=== PATIENT | male | born 1940 | race Caucasian/White ===

== ENCOUNTER 2018-07-13 08:17 | Emergency (ER) | payer MEDICARE, BC, SELFPAY ==
[2018-07-13 08:18] VITALS: PULSE 62; RESP 10; TEMP 36.3; O2SAT 98; BMI 28.0
[2018-07-13 08:24] VITALS: BP 141/83
--- NOTE | 2018-07-13 08:49 | RAD_ITS ---
STUDY: X-RAY CHEST REASON FOR EXAM: Male, 77 years old. Near syncopal episode. TECHNIQUE: Single AP portable view of the chest. COMPARISON: Comparison is made with prior study dated March 23, 2017. FINDINGS: EKG electrodes are seen. The lungs are clear and expanded. There is no demonstrated pleural abnormality. Sternal cerclage wires and vascular clips are present from a prior sternotomy and coronary artery bypass graft procedure (CABG). A left-sided ICD is seen. Borderline cardiomegaly. Normal mediastinum and kenzie. Normal visualized pulmonary arteries. There is atherosclerotic calcification of the aortic arch with tortuosity. There are diffuse degenerative changes of the visualized thoracic spine. Normal visualized ribs, clavicles, and shoulders. There is no demonstrated abnormality of the visualized soft tissue structures of the upper abdomen. RAD/Chest 1 View (Portable) IMPRESSION: No acute abnormality is present. Electronically Signed: Alok Condon, at 9:33 EST , Service support ,
--- NOTE | 2018-07-13 08:50 | EKG12_ITS ---
Test Reason : SYNCOPE Blood Pressure : / mmHG Vent. Rate : 057 BPM Atrial Rate : 057 BPM P-R Int : 210 ms QRS Dur : 096 ms QT Int : 438 ms P-R-T Axes : 044 031 064 degrees QTc Int : 426 ms Sinus bradycardia with 1st degree A-V block Possible Inferior infarct , age undetermined Abnormal ECG Confirmed by COLLEEN GARZA ([id number]), web editor COURTNEY LO ([id number]) on 07/17/2018 1:37:40 PM Referred By: JESSICA Confirmed By:COLLEEN GARZA
--- NOTE | 2018-07-13 08:53 | ED.VISSUMM ---
- ER Visit Summary Date of Service: 07/13/18 Chief Complaint: Near syncope History of Present Illness: The patient is a 77 M who presents to the emergency department after 2 episodes of near syncope. He called EMS who brought him to the hospital. Prehospital EKG shows a sinus rhythm. Patient states he lives by himself. He woke at 050 0 hours felt sleepy but otherwise was normal morning. He was getting dressed and he started feeling globally weak. He laid down on the couch for about 15 minutes. He slowly got up went to get a sweater on and his symptoms returned. He laid down again for about 20 minutes. He did not pass out. He states that he still was not feeling well so he called the ambulance. Denies any sweating, nausea, palpitations. States he has had a history of syncope in the past but hospitalization workups were negative. Notes 3 prior heart attacks. He sees Dr. Luna for cardiology. He has a pacemaker defibrillator in but states the battery is . 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 Physical Examination: Afebrile vital signs are stable Gen: Well-nourished well-developed Head: Normocephalic atraumatic Eyes: Perrl EOMI ENT: TMs clear no rhinorrhea moist mucous membranes Neck: Supple no lymphadenopathy no JVD nontender CVS: Regular rate rhythm no murmurs normal S1-S2 Respiratory: No distress clear to auscultation bilaterally chest nontender Abdomen: Soft nontender nondistended normal bowel sounds no masses Back: Nontender Extremity: Nontender no edema Skin: Normal color no rash Neuro: alert orientated ?3 CN II-XII intact normal strength sensation reflexes gait cerebellar Psych: Normal affect normal mood Test Results: CBC is normal. Chemistry showed a BUN of 42 with creatinine 1.60. Creatinine is around his baseline per him. Urinalysis normal. Troponin less than 0.015. Chest x-ray negative. Emergency Department Course and Treatment: Patient was placed on the monitor and observed. He has had no events on the monitor. Spoke with him about observation and he would prefer to go home. I think this is reasonable. He has had several admissions in the past for syncope/near syncope. Patient to return if worsening or concerns. Impression: 1. Near syncope This note was generated with NEHPation software. It may contain incorrect words, spelling, and punctuation that were not noted in review of the chart prior to signing ED Disposition - Plan for ED Patient: Disposition: Home or Assisted Living Instructions: ED Near Syncope Unkn Referrals: David Martínez MD [Primary Care Provider] - 1-2 Weeks
[2018-07-13 09:08] LABS: Hematocrit 38.8 % (40-54); Hemoglobin 13.1 g/dl (13.0-16.5); Mean Corp Hgb Conc 33.8 g/gl (32-36); Mean Corpuscular Hgb 31.4 pg (27.0-32.0); Mean Platelet Vol. 10.3 fl (6.2-12.0); Platelet Count 116 K/mm3 (150-450); RBC Distribution Width CV 13.8 % (11.6-14.6); RBC Distribution Width SD 46.9 fl (35.1-43.9); Red Blood Count 4.17 M/mm3 (4.6-6.2); White Blood Count 5.3 K/mm3 (4.4-11.0)
[2018-07-13 09:13] LABS: Scan Indicated on CBC? Y/N NO
[2018-07-13 09:22] LABS: Anion Gap 9 (5-15); BUN 42 mg/dL (7-18); BUN/Creat Ratio 26.2 RATIO (10-20); Calcium,Total 8.4 mg/dL (8.5-10.1); Chloride 111 mmol/L (98-107); EST Glomerular Filtration Rate 45 mL/min (>60); Est Glom Filt Rate - Afr Amer 54 mL/min (>60); Estimated Creatinine Clearance 39.87 ml/min; Glucose 98 mg/dL (74-106); Potassium 4.3 mmol/L (3.5-5.1); Sodium Level 143 mmol/L (136-145)
[2018-07-13 09:38] VITALS: BP 103/82; BP 110/70; BP 116/61; PULSE 52; PULSE 67; PULSE 69
[2018-07-13] MEDS: 0.9% Normal Saline 1,000 ML 999 ML IV (09:38)
[2018-07-13 10:14] LABS: Bacteria 0 SEEN /hpf (None Seen); Mucous, Urine 0 SEEN /hpf (<or=2+); Red Blood Cells-Urine 0 SEEN /hpf (0-5); White Blood Cells 0 SEEN /hpf (0-5)
[2018-07-13 10:16] LABS: Color, Urine Yellow (Yellow); Glucose, Dipstick Normal (Normal); Ketone-Dipstick Negative (Negative); Leukocyte Esterase-Dipstick Negative /ul (Negative); Nitrite-Dipstick Negative (Negative); Occult Blood-Urine Negative /ul (Negative); Protein-Dipstick Negative (Negative); Specific Gravity, Urine 1.015 (1.002-1.030); Urine Bilirubin Dipstick Negative (Negative); Urine Clarity Sl. Cloudy (Clear); Urine Urobilinogen Normal (Normal)
[2018-07-13 10:28] LABS: Squamous Epithelial Cells - UA 0-5 SEEN /hpf (0-5)
[2018-07-13 10:47] VITALS: BP 134/89; PULSE 66; RESP 14; O2SAT 99
== END 2018-07-13 11:39 | disposition home or self-care (01) ==
PROVIDERS: Emergency Provider Emergency Medicine; Family Provider Family Medicine; PCP Family Medicine
DX: R55 Syncope and collapse (principal); I25.10 Atherosclerotic heart disease of native coronary artery without angina pectoris; I12.9 Hypertensive chronic kidney disease with stage 1 through stage 4 chronic kidney disease, or unspecified chronic kidney disease; N18.3 Chronic kidney disease, stage 3 (moderate); N40.0 Benign prostatic hyperplasia without lower urinary tract symptoms; I25.2 Old myocardial infarction; Z87.891 Personal history of nicotine dependence; Z95.810 Presence of automatic (implantable) cardiac defibrillator
CPT/HCPCS: 71045; 80048; 81001; 84484; 85027; 93005; 96360; 99285; J7030; A4216

== ENCOUNTER 2018-10-15 10:12 | Emergency (ER) | payer MEDICARE, BC, SELFPAY ==
[2018-10-15 10:13] VITALS: BP 136/80; PULSE 54; PULSE 56; RESP 14; RESP 18; TEMP 35.7; O2SAT 100; BMI 27.9
--- NOTE | 2018-10-15 10:32 | EKG12_ITS ---
Test Reason : Blood Pressure : / mmHG Vent. Rate : 056 BPM Atrial Rate : 056 BPM P-R Int : 214 ms QRS Dur : 104 ms QT Int : 496 ms P-R-T Axes : 113 056 077 degrees QTc Int : 478 ms Sinus bradycardia with 1st degree A-V block Nonspecific ST and T wave abnormality Abnormal ECG Confirmed by LEANDER JACOME, MEÑO ([id number]), editor city SAMSON GIBSON ([id number]) on 10/20/2018 8:21:22 AM Referred By: HAMLET Confirmed By:MEÑO TABOR MD
--- NOTE | 2018-10-15 10:33 | ED.VIS.GEN ---
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 Outpatient work-up was initiated. Table tilt test and cardiac work-up negative. Results of EEG are unknown. He has not driven since July. He present complains of headache and had incontinence of urine. He denied biting his tongue or lip. He denies change in vision. Denies difficulty with speech or swallowing. He denies cardiac restaurant symptoms. He denies GI symptoms. He denies dysuria, frequency, urgency or hematuria. Denies black or maroon stool. He denies paresthesia, anesthesia or motor weakness. Vineyard Supervisor report not available at time of this dictation. Triage nurse, blood pressure was 80 initially. Prior similar symptoms: Yes Recent Illness/Hospitalization: Yes - Past Medical History (1) BPH (benign prostatic hyperplasia) Status: Chronic (2) CAD (coronary artery disease) Status: Chronic (3) Chronic kidney disease, stage III (moderate) Status: Chronic Comment: Status post right nephrectomy (4) Hypertension Status: Chronic (5) S/P ICD (internal cardiac defibrillator) procedure Status: Chronic Past Medical History - Allergies and Home Meds Allergies/Adverse Reactions: Allergies Penicillins Allergy (Verified 10/15/18 10:12) Unknown Primary Care Physician: David Martínez MD [Primary Care Provider] - Prior records reviewed: Yes Surgical History: - - CABG, multiple cardiac stent placement, lower mandible bilateral reduction, laminectomy L2-L4, right nephrectomy Lives: Alone Smoking Status: Former smoker Alcohol: None Drugs: None - Family History Maternal Family History: Reports: Cancer - Ovarian Paternal Family History: Reports: Diabetes Review of Systems General: Denies: Chills, Fever, Sweats Eyes: Denies: Visual changes - bilaterally, Blurred Vision - bilaterally, Diplopia ENT: Denies: Bilateral ear pain, Rhinorrhea, Sore throat Cardiovascular: Denies: Chest pain, Palpitations Respiratory: Denies: Dyspnea, Cough, Dyspnea on exertion Gastrointestinal: Denies: Abdominal pain, Nausea, Vomiting, Diarrhea, Melena, Hematochezia Genitourinary: Denies: Dysuria, Hematuria, Frequency Musculoskeletal: Denies: Myalgias, Arthralgias, Neck pain, Back pain, Swelling, Extremity Pain Skin: Denies: Rash, Wounds Neurological: Reports: Headache Hematologic: Denies: Easy bruising, Easy bleeding Physical Exam Vital Signs/Narrative: Vital Signs Temp Pulse Resp BP Pulse Ox 10/15/18 10:13 96.3 F L 56 L 18 136/80 H 100 Inital Vital Signs reviewed: Yes General: Well nourished, Well developed, No Acute Distress Head: Normocephalic, Atraumatic Eyes: Perrl, EOMI ENT: Moist mucous membranes, No rhinorrhea Neck: Supple, Nontender Cardiovascular: Regular rate, Regular rhythm, No murmurs Respiratory: No distress, CTA bilaterally, Chest nontender Abdomen: Soft, Nontender, Nondistended, Normal bowel sounds Back: Nontender, Normal Inspection Extremities: Nontender, No edema. Negative for: Tenderness, Edema, Calf Tenderness Skin: Normal color, No rash, No Trauma. Negative for: Cyanosis, Diaphoresis, Jaundice Neurological: Alert, Oriented x3, Cranial nerves II-XII grossly intact, Normal Strength, Normal Sensation, Normal DTR Psychological: Normal affect, Normal Mood Diagnostic/Tx/Re-eval Laboratory Results 10/15/18 10:55 Sodium 142 Potassium 3.9 Chloride 113 H Carbon Dioxide 23.0 Anion Gap 6 BUN 38 H Creatinine 1.50 H Estim Creat Clear Calc 42.53 Est GFR (MDRD) Af Amer 58 L Est GFR (MDRD) Non-Af 48 L BUN/Creatinine Ratio 25.3 H Glucose 88 Calcium 8.1 L - EKG Initial EKG Interpretation: Sinus Bradycardia - Ventricular rate is 56. There is first-degree AV block with ID interval of 214 ms. QRS duration is prolonged at 104 ms. QT interval is normal. This is unchanged from July 13, 2018. Prior: Unchanged - Medical Decision Making With reported low blood pressure, systolic in the 80s and syncopal episode suspect vasovagal. EKG was obtained since he is elderly and has history of cardiac issues. With patient complained of headache and incontinence to urine concern this may represent a seizure. Will obtain results of EEG performed end of September at [facility]. The EEG performed on October 07 at [facility] center revealed focal cerebral dysfunction in the left more than the right frontal temporal region. There was no epileptiform discharges or EEG seizures seen during this recording. EEG was interpreted by Dr.Jessica Melany MD. In light of bradycardia with hypotension normal EEG and normal cardiac work-up suspect vasovagal syncopal episode. Will discharge patient to home. ED Disposition - Plan for ED Patient: Disposition: Home or Assisted Living Diagnosis: Vasovagal syncope Instructions: ED Syncope Vasovagal Referrals: David Martínez MD [Primary Care Provider] - 3-5 Days
--- NOTE | 2018-10-15 10:38 | ED.DCSUM_ITS ---
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 Outpatient work-up was initiated. Table tilt test and cardiac work-up negative. Results of EEG are unknown. He has not driven since July. He present complains of headache and had incontinence of urine. He denied biting his tongue or lip. He denies change in vision. Denies difficulty with speech or swallowing. He denies cardiac restaurant symptoms. He denies GI symptoms. He denies dysuria, frequency, urgency or hematuria. Denies black or maroon stool. He denies paresthesia, anesthesia or motor weakness. Industrial Engineer report not available at time of this dictation. Triage nurse, blood pressure was 80 initially. Prior similar symptoms: Yes Recent Illness/Hospitalization: Yes - Past Medical History (1) BPH (benign prostatic hyperplasia) Status: Chronic (2) CAD (coronary artery disease) Status: Chronic (3) Chronic kidney disease, stage III (moderate) Status: Chronic Comment: Status post right nephrectomy (4) Hypertension Status: Chronic (5) S/P ICD (internal cardiac defibrillator) procedure Status: Chronic Past Medical History - Allergies and Home Meds Allergies/Adverse Reactions: Allergies Penicillins Allergy (Verified 10/15/18 10:12) Unknown Primary Care Physician: David Martínez MD [Primary Care Provider] - Prior records reviewed: Yes Surgical History: - - CABG, multiple cardiac stent placement, lower mandible bilateral reduction, laminectomy L2-L4, right nephrectomy Lives: Alone Smoking Status: Former smoker Alcohol: None Drugs: None - Family History Maternal Family History: Reports: Cancer - Ovarian Paternal Family History: Reports: Diabetes Review of Systems General: Denies: Chills, Fever, Sweats Eyes: Denies: Visual changes - bilaterally, Blurred Vision - bilaterally, Diplopia ENT: Denies: Bilateral ear pain, Rhinorrhea, Sore throat Cardiovascular: Denies: Chest pain, Palpitations Respiratory: Denies: Dyspnea, Cough, Dyspnea on exertion Gastrointestinal: Denies: Abdominal pain, Nausea, Vomiting, Diarrhea, Melena, He matochezia Genitourinary: Denies: Dysuria, Hematuria, Frequency Musculoskeletal: Denies: Myalgias, Arthralgias, Neck pain, Back pain, Swelling, Extremity Pain Skin: Denies: Rash, Wounds Neurological: Reports: Headache Hematologic: Denies: Easy bruising, Easy bleeding Physical Exam Vital Signs/Narrative: Vital Signs Temp Pulse Resp BP Pulse Ox 10/15/18 10:13 96.3 F L 56 L 18 136/80 H 100 Inital Vital Signs reviewed: Yes General: Well nourished, Well developed, No Acute Distress Head: Normocephalic, Atraumatic Eyes: Perrl, EOMI ENT: Moist mucous membranes, No rhinorrhea Neck: Supple, Nontender Cardiovascular: Regular rate, Regular rhythm, No murmurs Respiratory: No distress, CTA bilaterally, Chest nontender Abdomen: Soft, Nontender, Nondistended, Normal bowel sounds Back: Nontender, Normal Inspection Extremities: Nontender, No edema. Negative for: Tenderness, Edema, Calf Tenderness Skin: Normal color, No rash, No Trauma. Negative for: Cyanosis, Diaphoresis, Jaundice Neurological: Alert, Oriented x3, Cranial nerves II-XII grossly intact, Normal Strength, Normal Sensation, Normal DTR Psychological: Normal affect, Normal Mood Diagnostic/Tx/Re-eval Laboratory Results 10/15/18 10:55 Sodium 142 Potassium 3.9 Chloride 113 H Carbon Dioxide 23.0 Anion Gap 6 BUN 38 H Creatinine 1.50 H Estim Creat Clear Calc 42.53 Est GFR (MDRD) Af Amer 58 L Est GFR (MDRD) Non-Af 48 L BUN/Creatinine Ratio 25.3 H Glucose 88 Calcium 8.1 L - EKG Initial EKG Interpretation: Sinus Bradycardia - Ventricular rate is 56. There is first-degree AV block with NH interval of 214 ms. QRS duration is prolonged at 104 ms. QT interval is normal. This is unchanged from July 13, 2018. Prior: Unchanged - Medical Decision Making With reported low blood pressure, systolic in the 80s and syncopal episode suspect vasovagal. EKG was obtained since he is elderly and has history of cardiac issues. With patient complained of headache and incontinence to urine concern this may represent a seizure. Will obtain results of EEG performed end of September at [facility]. The EEG performed on October 07 at [facility] revealed focal cerebral dysfunction in the left more than the right frontal temporal region. There was no epileptiform discharges or EEG seizures seen during this recording. EEG was interpreted by Dr.Jessica Melany MD. In light of bradycardia with hypotension normal EEG and normal cardiac work-up suspect vasovagal syncopal episode. Will discharge patient to home. ED Disposition - Plan for ED Patient: Disposition: Home or Assisted Living Diagnosis: Vasovagal syncope Instructions: ED Syncope Vasovagal Referrals: David Martínez MD [Primary Care Provider] - 3-5 Days
--- NOTE | 2018-10-15 10:45 | NURSING ---
ATTEMPTING TO GET EEG FROM [facility]. FAXED PAPER TO [facility] MAIN RELEASE OF INFO [phone]
[2018-10-15 11:15] LABS: Anion Gap 6 (5-15); BUN 38 mg/dL (7-18); BUN/Creat Ratio 25.3 RATIO (10-20); Calcium,Total 8.1 mg/dL (8.5-10.1); Chloride 113 mmol/L (98-107); EST Glomerular Filtration Rate 48 mL/min (>60); Est Glom Filt Rate - Afr Amer 58 mL/min (>60); Estimated Creatinine Clearance 42.53 ml/min; Glucose 88 mg/dL (74-106); Potassium 3.9 mmol/L (3.5-5.1); Sodium Level 142 mmol/L (136-145)
--- NOTE | 2018-10-15 11:32 | NURSING ---
CALLED [facility] TO SEE IF RESPIR[facility]ORY WOULD FAX THE RESULTS OF THE EEG. THEY SAID THEY WOULD FAX THEM TO US
[2018-10-15] MEDS: Aspirin 325 MG Tablet PO (12:05)
[2018-10-15 12:38] VITALS: BP 119/85; PULSE 55; RESP 13; O2SAT 98
[2018-10-15 13:01] VITALS: BP 133/85; PULSE 56; RESP 17; O2SAT 95
== END 2018-10-15 13:30 | disposition home or self-care (01) ==
PROVIDERS: Emergency Provider Emergency Medicine; Family Provider Family Medicine; PCP Family Medicine
DX: R55 Syncope and collapse (principal); R00.1 Bradycardia, unspecified; I44.0 Atrioventricular block, first degree; I12.9 Hypertensive chronic kidney disease with stage 1 through stage 4 chronic kidney disease, or unspecified chronic kidney disease; N18.3 Chronic kidney disease, stage 3 (moderate); I25.10 Atherosclerotic heart disease of native coronary artery without angina pectoris; N40.0 Benign prostatic hyperplasia without lower urinary tract symptoms; Z87.891 Personal history of nicotine dependence; Z95.1 Presence of aortocoronary bypass graft; Z90.5 Acquired absence of kidney; Z95.5 Presence of coronary angioplasty implant and graft; Z88.0 Allergy status to penicillin; Z95.810 Presence of automatic (implantable) cardiac defibrillator
CPT/HCPCS: 80048; 93005; 99285; A4216

== ENCOUNTER 2018-11-09 20:58 | Inpatient (IN) | payer MEDICARE, BC, SELFPAY ==
[2018-11-09 20:59] VITALS: BP 146/88; PULSE 66; RESP 10; TEMP 36.4; O2SAT 100; BMI 26.9
--- NOTE | 2018-11-09 21:36 | ED.RN ---
sister called in at this time looking for patient updated. sister left phone number [phone]
[2018-11-09 22:00] VITALS: BP 129/70; BP 131/74; BP 134/79; PULSE 60; PULSE 64; PULSE 67
--- NOTE | 2018-11-09 22:01 | EKG12_ITS ---
Test Reason : Blood Pressure : / mmHG Vent. Rate : 065 BPM Atrial Rate : 065 BPM P-R Int : 172 ms QRS Dur : 102 ms QT Int : 494 ms P-R-T Axes : 040 056 073 degrees QTc Int : 513 ms Normal sinus rhythm Low voltage QRS ( Limb Leads) Prolonged QT Abnormal ECG Confirmed by LAMONT JACOME, BRENDA ([id number]), brands editor RAMILA PIKE ([id number]) on 11/11/2018 12:14:51 PM Referred By: JAYSHREE Confirmed By:BRENDA MIGUEL MD
[2018-11-09 22:36] VITALS: BP 141/85; PULSE 64; RESP 15; O2SAT 100
[2018-11-09 22:48] LABS: Absolute Lymphocyte Count 1.04 X10^3/ul (0.83-4.51); Absolute Neutrophil Count 2.3 X10^3/uL (2.0-7.7); Basophil# 0.02 X10^3/uL; Basophil% 0.5 % (0-1); Eosinophil# 0.16 X10^3/uL; Eosinophils% 3.9 % (0-5); Hematocrit 36.2 % (40-54); Hemoglobin 12.3 g/dl (13.0-16.5); Lymphocyte # 1.04 X10^3/ul (4.0); Lymphocyte % 25.4 % (19-41); Mean Corpuscular Hgb 30.7 pg (27.0-32.0); Mean Corpuscular Volume 90.3 fL (80-94); Mean Platelet Vol. 9.7 fl (6.2-12.0); Monocyte# 0.53 X10^3/uL; Monocyte% 12.9 % (0-10); Neutrophil # 2.33 X10^3/uL (2.7-7.7); Neutrophil % 56.8 % (47-70); Platelet Count 115 K/mm3 (150-450); RBC Distribution Width CV 12.9 % (11.6-14.6); RBC Distribution Width SD 42.3 fl (35.1-43.9); Red Blood Count 4.01 M/mm3 (4.6-6.2); White Blood Count 4.1 K/mm3 (4.4-11.0)
[2018-11-09 22:54] LABS: POSITIVE COUNT NO; POSITIVE DIFFERENTIAL NO; POSITIVE MORPHOLOGY NO
[2018-11-09 23:00] VITALS: BP 138/95; PULSE 65; RESP 18; O2SAT 99
[2018-11-09 23:09] LABS: ALB/GLOB Ratio 1.3 RATIO (0.9-2.4); AST(SGOT) 25 U/L (15-37); Alanine Aminotransfer ALT/SGPT 15 U/L (16-61); Albumin, Serum 3.9 g/dL (3.2-5.0); Alkaline Phosphatase 69 U/L (45-117); Anion Gap 9 (5-15); BUN 32 mg/dL (7-18); BUN/Creat Ratio 18.4 RATIO (10-20); Calcium,Total 8.9 mg/dL (8.5-10.1); Chloride 106 mmol/L (98-107); Creatinine, Serum 1.74 mg/dL (0.70-1.30); EST Glomerular Filtration Rate 40 mL/min (>60); Est Glom Filt Rate - Afr Amer 49 mL/min (>60); Estimated Creatinine Clearance 36.06 ml/min; Globulin 2.9 g/dL (2.2-4.2); Glucose 94 mg/dL (74-106); Potassium 4.6 mmol/L (3.5-5.1); Protein, Total 6.8 g/dL (6.4-8.2); Sodium Level 141 mmol/L (136-145)
--- NOTE | 2018-11-09 23:14 | ED.RN ---
notified of critical troponin values called in by lab
[2018-11-09] MEDS: Aspirin 81 MG TAB.CHEW 324 MG PO (23:25)
--- NOTE | 2018-11-09 23:25 | RAD_ITS ---
HISTORY: chest pain EXAM: XR Chest 1 View: COMPARISON: July 13, 2018 FINDINGS: # of images incl. paperwork: 1 Sternal wires remain. The cranial-most sternal wire has fractured. Left chest wall left subclavian access single lead cardiac pacer is unchanged in position. Calcific plaque within the aortic arch persists Lungs are clear. Heart is borderline enlarged. Thoracic spondylosis and degenerative disc disease Pulmonary vascularity is distinct. No effusions. RAD/Chest 1 View (Portable) IMPRESSION: No acute cardiopulmonary disease perceived. at 2336 Reported and signed by: London Alfaro MD Electronically Signed: London Alfaro MD at 23:35 EDT Tel , Service support ,
--- NOTE | 2018-11-09 23:27 | ED.DCSUM_ITS ---
- ER Visit Summary Date of Service: 11/09/18 Chief Complaint: Syncope History of Present Illness: The patient is a 78 M who presents with a syncopal episode that occurred tonight. Patient states he was tying a row boat to a dock when he passed out. Patient states he laid on the ground before he passed out. Patient states he felt lightheaded like he was going to pass out and then laid on the ground. Patient states he does not know how long he was unconscious for. Patient denies any chest pain or shortness of breath. Patient admits to a headache. Patient states he has a history of syncopal episodes and has had a work-up through neurology for his syncopal episodes but has not found a cause yet. Physical Examination: Vital signs are stable. Patient is afebrile. Patient is in no acute distress. Oral mucosa is pink and moist. Neck is supple. Trachea is midline. There is no JVD noted. Heart was regular rate and rhythm. Lungs are clear and equal bilateral. Abdomen is soft. Bowel sounds are normal. There is no tenderness. There is no guarding noted. Skin is warm dry. Cranial nerves II through XII are intact. There are no focal motor or sensory deficits noted. The remaining physical exam is within normal limits. Test Results: EKG showed normal sinus rhythm with a rate of 65. There is some T wave flattening in V5 and V6 which is new compared to the previous EKG dated 10/15/2018 but looks somewhat similar to the EKG from 07/13/2018. CBC shows platelet count of 115. Basic metabolic profile showed an elevated BUN of 32 and creatinine of 1.74. Troponin was elevated 0.905. Emergency Department Course and Treatment: Patient was given aspirin. Case was discussed with Dr. Johnson. He does not want patient started on heparin drip or any other medications at this time. He recommends admitting the patient to the hospitalist and he will see the patient in the morning. Case was discussed with the hospitalist. Patient will be admitted to the hospital. Disposition: Admit to hospital Impression: Non-STEMI This note was generated with [employer] dictation software. It may contain incorrect words, spelling, and punctuation that were not noted in review of the chart prior to signing Syncope ED Disposition - Plan for ED Patient: Disposition: Acute Care Hospital [facility] Diagnosis: Non-STEMI (non-ST elevated myocardial infarction) Referrals: David Martínez MD [Primary Care Provider] -
[2018-11-10] VITALS (14 sets, daily range): BP systolic 78–136; BP diastolic 43–78; PULSE 59–71; RESP 15–19; TEMP 36.4–36.9; O2SAT 96–100; BMI 25.7; BMI 26.9
--- NOTE | 2018-11-10 00:04 | HP.PCM_ITS ---
Problem List (1) Non-STEMI (non-ST elevated myocardial infarction) Status: Acute (2) Hypertension Status: Chronic (3) Chronic kidney disease, stage III (moderate) Status: Chronic Comment: Status post right nephrectomy History of Present Illness Date of Admission: 11/10/18 Chief Complaint: SYNCOPE The patient is a 78 year old M with a significant history of kidney cancer status post nephrectomy; CAD status post CABG in , coronary stent placed in graft in May 1994 and angioplasty in March 1995; ICD which reportedly is not working; and with recurrent syncope who presented with a syncopal episode while working on his boots. He had a presyncopal feeling so he squatted. The next thing he realized he was on the floor having passed out. He denied any nausea, vomiting or seizure activity associated with his passing out. A neighbor saw him lying on the floor and the neighbor helped him called 911. At the emergency department patient was noted to have elevated troponin for which reason cardiology was consulted. Past Medical History Past Medical History (Chronic Problems): Chronic Problems CAD (coronary artery disease) (Chronic) BPH (benign prostatic hyperplasia) (Chronic) Hypertension (Chronic) History of laminectomy (Chronic) L2-L4 S/P ICD (internal cardiac defibrillator) procedure (Chronic) Chronic kidney disease, stage III (moderate) (Chronic) Status post right nephrectomy Allergies Penicillins Allergy (Verified 11/09/18 22:34) Unknown Home Medications: Ambulatory Orders Medication Instructions Recorded Ascorbic Acid [Vitamin C] 1,000 mg PO DAILY 03/23/17 Aspirin 81 mg PO DAILY 03/23/17 Carvedilol [Coreg (Beta Xochitl)] 3.125 tab PO BID 03/23/17 Diclofenac [Voltaren] 75 mg PO BID PRN PRN 03/23/17 Cholecalciferol (Vitamin D3) 2,000 unit PO DAILY 07/13/18 [Vitamin D3] Ubidecarenone [Coq-10] 100 mg PO DAILY 11/10/18 Surgical History: - - CABG, multiple cardiac stent placement, lower mandible bilateral reduction, laminectomy L2-L4, right nephrectomy Lives: Alone Smoking Status: Former smoker - *Family History Maternal History Items: Cancer - Ovarian Paternal History Items: Diabetes Review of Systems Constitutional: Denies: Chills, Fever, Weight Change HEENT: Denies: Head Aches, Sinus Congestion, Sinus Drainage Cardiovascular: Reports: Syncope. Denies: Chest Pain, Palpitations Respiratory: Denies: Cough, Shortness of breath at rest, Sputum production Gastrointestinal: Denies: Abdominal Pain, Nausea, Vomiting Genitourinary: Denies: Dysuria Musculoskeletal: Denies: Joint Pain, Joint Tenderness Skin: Denies: Rash, Wounds Neurological: Denies: Numbness, Tingling, Focal weakness Psychiatric: Denies: Anxiety, Depression, Homicidal Ideations, Suicidal Ideations Hematologic/ Lymphatic: Denies: Easy Bruising, Easy Bleeding VTE Information - Inpt Only VTE Present on Admission: No VTE Mechan Device Prophylaxis: None VTE Pharm Prophylaxis ordered?: Yes Patient Problems: Active and Suspected Problems Non-STEMI (non-ST elevated myocardial infarction) (Acute) - Physical Exam General: Alert, Oriented x3, Cooperative HEENT: Atraumatic, PERRLA, EOMI, Normocephalic Neck: Supple, No JVD, Negative Carotid Bruits Lungs: Clear to auscultation, Normal air movement Cardiovascular: Regular rate, No murmurs Abdomen: Bowel Sounds Present, Soft, Non Tender Extremities: No edema, Capillary Refill Less than 3 Seconds Skin: No rashes, No breakdown Musculoskeletal: No Tenderness to Palpation of Joints or Extremities Neurological: Cranial nerves II-XII grossly intact Psych/Mental Status: Normal Affect, Appropriate Vital Signs Temp Pulse Resp BP Pulse Ox 97.6 F L 65 18 138/95 H 99 11/09/18 20:59 11/09/18 23:00 11/09/18 23:00 11/09/18 23:00 11/09/18 23:00 Oxygen Delivery Method Room Air Weight: 87.5 kg Body Mass Index (BMI) 26.9 Laboratory Tests Past 24 Hrs 11/09/18 11/09/18 22:30 22:30 WBC 4.1 L RBC 4.01 L Hgb 12.3 L Hct 36.2 L MCV 90.3 MCH 30.7 MCHC 34.0 RDW 12.9 RDW Differential 42.3 Plt Count 115 L MPV 9.7 Immature Gran % (Auto) 0.500 Neut % (Auto) 56.8 Lymph % (Auto) 25.4 [place] % (Auto) 12.9 H Eos % (Auto) 3.9 Baso % (Auto) 0.5 Absolute Neuts (auto) 2.3 Absolute Lymphs (auto) 1.04 Total Counted Not Reportable Sodium 141 Potassium 4.6 Chloride 106 Carbon Dioxide 26.0 Anion Gap 9 BUN 32 H Creatinine 1.74 H Estim Creat Clear Calc 36.06 Est GFR (MDRD) Af Amer 49 L Est GFR (MDRD) Non-Af 40 L BUN/Creatinine Ratio 18.4 Glucose 94 Calcium 8.9 Total Bilirubin 0.60 AST 25 ALT 15 L Alkaline Phosphatase 69 Troponin I 0.905 H* Total Protein 6.8 Albumin 3.9 Globulin 2.9 Albumin/Globulin Ratio 1.3 Assessment/Plan All Active Problems Non-STEMI (non-ST elevated myocardial infarction) (Acute) Near syncope (Acute) The patient is a 78 year old M with a significant history of CAD status post CABG in , coronary stent placed in graft in May 1994 and angioplasty in March 1995; ICD which reportedly is not working; and with recurrent syncope who presented with a syncopal episode while working on his boat and found to have elevated troponin consistent with NSTEMI. Non-ST elevated VA Admit to a monitored bed on PCU CXR independently reviewed confirms no acute cardiopulmonary process. Noted to have ICD in place. EKG independently reviewed confirms T wave flattening in V6; decrease in height of T wave in V5 compared to that of 10/15/2018. However, EKG on presentation was no different from EKG on 13 July 2018. Received aspirin 324 mg in the emergency department. Continue ASA 81 mg p.o. daily We will check lipid panel. High intensity statin x1 dose ordered. Serial cardiac enzymes Emergency department doctor discussed the case with cardiology and cardiology will follow. Per discussion between emergency department doctor and cardiology no anticoagulation at this time. Cardiology consult placed. Patient reports intolerance to statin. Statin not ordered Hold Diclofenac that he takes prn. Syncope Patient reported he had a first syncopal episode with collapse on 12 July [address]. He has had about 2-3 more episodes so at this time he does not drive. His orthostatics were unremarkable in the ED. Potassium was unremarkable. Check magnesium level. CKD On Admission his creatinine was 1.74 which although elevated which is within his baseline. Will give gentle IV hydration. Trend BMP. Of note patient reports a history of renal cancer status post nephrectomy. CAD status post CABG, stent and angioplasty Aspirin and Coreg continued Patient reports intolerance to statin. Obtain records from [facility]. ICD Placement Patient reported that he had ICD placed because of ventricular fibrillation about 10 years ago. He reported that the battery of of his ICD is . He thinks that his ICD is not functioning. Order to obtain records from [facility] where he has had multiple heart procedures. May be more information from his ICD can be obtained from the records. DVT prophylaxis Subcutaneous Heparin Code Visit OBSV E&M: 86888 Initial observation care L3
[2018-11-10] MEDS: 0.9% Normal Saline 1,000 ML 75 ML IV ×2 (01:37→18:00)
[2018-11-10 04:19] LABS: Bacteria 0 SEEN /hpf (None Seen); Mucous, Urine 0 SEEN /hpf (<or=2+); Red Blood Cells-Urine 0 SEEN /hpf (0-5); Squamous Epithelial Cells - UA 0 SEEN /hpf (0-5); White Blood Cells 0 SEEN /hpf (0-5)
[2018-11-10 04:25] LABS: Color, Urine Yellow (Yellow); Glucose, Dipstick Normal (Normal); Ketone-Dipstick 5 mg/dl (Negative); Leukocyte Esterase-Dipstick Negative /ul (Negative); Nitrite-Dipstick Negative (Negative); Occult Blood-Urine Negative /ul (Negative); Protein-Dipstick 15 mg/dl (Negative); Urine Bilirubin Dipstick Negative (Negative); Urine Clarity Clear (Clear); Urine Urobilinogen Normal (Normal); Urine pH 6.5 (5.0 - 8.0)
[2018-11-10 05:29] LABS: International Normalized Ratio 1.2; Prothrombin Time (Protime)PT. 14.5 SECONDS (11.7-14.9)
[2018-11-10 05:51] LABS: Cholesterol 209 mg/dL (200); High Density Lipoprotein 29 mg/dL; Magnesium 2.4 mg/dL (1.6-2.6); Triglycerides 285 mg/dL; Very Low Density Lipoprotein 57 mg/dL (5-40)
[2018-11-10] MEDS: Aspirin 81 MG TAB.CHEW PO (08:56)
[2018-11-10] MEDS: Carvedilol 3.125 MG TABLET PO ×2 (08:56→21:08)
[2018-11-10] MEDS: Heparin Injection (Vial) 5,000 UNIT/ML VIAL 5000 UNIT SC ×2 (08:56→21:08)
[2018-11-10] MEDS: Ensure Clear 120 ML Liquid PO (08:58)
--- NOTE | 2018-11-10 10:23 | NURSING ---
Leaving for EGD
--- NOTE | 2018-11-10 11:37 | CASEMGMT ---
RN CM Assessment Presentation: NSTEMI Intro role of CM and purpose of RN CM assessment to patient. Pt is awake, alert and able to participate in assessment. Demographics, PCP and Pharmacy verified. Pt states he is generally independent, does not use DME and cares for self at home. Pt voiced he has begun considering moving to Assisted Living or one story home. States he has contacted [facility] Small but could benefit from more information. RN CM discussed SW speaking with pt re: planning if pt cannot remain in his home.Pt is agreeable. PCP: Dr. Martínez Specialists: Dr. Johnson Preferred Pharmacy: [facility] Pharmacy, [place] Insurance: [facility] Prescription Benefit: yes LNOK: Sister, Amara Hutchinson. Pt confirms this is his contact. Living Arrangements: Lives in two story home, 4 steps into home and 16 steps into home. Pt states he is independent at home. States he has increasing difficulty with stairs and worries he may have syncopal episode at home and hurt himself. Transportation: Pt pays for transportation services. States he can drive, however with syncopal episodes, he prefers not to. DME: cane only per pt. HHC: Had in past, not sure which agency. Discussed Home Health on dc and pt is declining at this time. States as long as he is not dizzy, he manages at home. SW: referral to speak with pt re: planning if cannot remain in home. PHANI Galloway updated. Patient DC goals: Home DC PLAN: Home Tiana GUSTAFSON RN ACM
--- NOTE | 2018-11-10 13:39 | PCM.PROGNOTE ---
<Angel Garcia - Last Filed: 11/10/18 13:39> Patient Problems: Active and Suspected Problems Non-STEMI (non-ST elevated myocardial infarction) (Acute) Subjective: Pt has no c/o CP, SOB, LH/Dizzines, palpitations. He has an AICD however it is due for a battery change and he is undecided about if he wants it changed, and he also does not know how much life is left. He states his EP doc informed him that he is unsure if it has enough charge to deliver a shock if needed. He reports becoming dizzy, blacking out, losing control of his bladder, and waking up with mild fogginess that gradually goes away. The patient has had several EEGs done, no seizure has ever been found. Prior to this syncopal event the last was about 1 month ago. - Physical Exam General: Alert, Oriented x3, Cooperative HEENT: Atraumatic, PERRLA, EOMI, Normocephalic Neck: Supple, No JVD, Negative Carotid Bruits Lungs: Clear to auscultation, Normal air movement Cardiovascular: Regular rate, No murmurs Abdomen: Bowel Sounds Present, Soft, Non Tender Extremities: No edema, Capillary Refill Less than 3 Seconds Skin: No rashes, No breakdown Musculoskeletal: No Tenderness to Palpation of Joints or Extremities Neurological: Cranial nerves II-XII grossly intact Psych/Mental Status: Normal Affect, Appropriate, Alert and oriented to time, place, person, mood and affect Vital Signs Temp Pulse Resp BP Pulse Ox 97.9 F 60 15 95/56 L 100 11/10/18 08:55 11/10/18 08:55 11/10/18 08:55 11/10/18 08:55 11/10/18 08:55 Oxygen Delivery Method Room Air Weight: 184 lb 4.903 oz Body Mass Index (BMI) 25.7 Intake and Output for Last 24 Hours 11/08/18 11/09/18 11/10/18 23:59 23:59 23:59 Intake Total 1146 / 1146 Balance 1146 / 1146 Laboratory Tests Past 24 Hrs 11/09/18 11/09/18 11/10/18 22:30 22:30 01:57 WBC 4.1 L RBC 4.01 L Hgb 12.3 L Hct 36.2 L MCV 90.3 MCH 30.7 MCHC 34.0 RDW 12.9 RDW Differential 42.3 Plt Count 115 L MPV 9.7 Immature Gran % (Auto) 0.500 Neut % (Auto) 56.8 Lymph % (Auto) 25.4 [place] % (Auto) 12.9 H Eos % (Auto) 3.9 Baso % (Auto) 0.5 Absolute Neuts (auto) 2.3 Absolute Lymphs (auto) 1.04 Total Counted Not Reportable PT INR Sodium 141 Potassium 4.6 Chloride 106 Carbon Dioxide 26.0 Anion Gap 9 BUN 32 H Creatinine 1.74 H Estim Creat Clear Calc 36.06 Est GFR (MDRD) Af Amer 49 L Est GFR (MDRD) Non-Af 40 L BUN/Creatinine Ratio 18.4 Glucose 94 Calcium 8.9 Magnesium Total Bilirubin 0.60 AST 25 ALT 15 L Alkaline Phosphatase 69 Troponin I 0.905 H* 1.100 H* Total Protein 6.8 Albumin 3.9 Globulin 2.9 Albumin/Globulin Ratio 1.3 Triglycerides Cholesterol LDL Cholesterol VLDL Cholesterol HDL Cholesterol Urine Color Urine Clarity Urine pH Ur Specific [place] Urine Protein Urine Glucose (UA) Urine Ketones Urine Occult Blood Urine Nitrite Urine Bilirubin Urine Urobilinogen Ur Leukocyte Esterase Urine RBC Urine WBC Ur Squamous Epith Cells Urine Bacteria Urine Mucus 11/10/18 11/10/18 11/10/18 04:10 04:48 04:48 WBC RBC Hgb Hct MCV MCH MCHC RDW RDW Differential Plt Count MPV Immature Gran % (Auto) Neut % (Auto) Lymph % (Auto) [place] % (Auto) Eos % (Auto) Baso % (Auto) Absolute Neuts (auto) Absolute Lymphs (auto) Total Counted PT 14.5 INR 1.2 Sodium Potassium Chloride Carbon Dioxide Anion Gap BUN Creatinine Estim Creat Clear Calc Est GFR (MDRD) Af Amer Est GFR (MDRD) Non-Af BUN/Creatinine Ratio Glucose Calcium Magnesium 2.4 Total Bilirubin AST ALT Alkaline Phosphatase Troponin I 0.751 H* Total Protein Albumin Globulin Albumin/Globulin Ratio Triglycerides 285 H Cholesterol 209 H LDL Cholesterol 123 VLDL Cholesterol 57 H HDL Cholesterol 29 L Urine Color Yellow Urine Clarity Clear Urine pH 6.5 Ur Specific [place] 1.010 Urine Protein 15 H Urine Glucose (UA) Normal Urine Ketones 5 H Urine Occult Blood Negative Urine Nitrite Negative Urine Bilirubin Negative Urine Urobilinogen Normal Ur Leukocyte Esterase Negative Urine RBC 0 SEEN Urine WBC 0 SEEN Ur Squamous Epith Cells 0 SEEN Urine Bacteria 0 SEEN Urine Mucus 0 SEEN Medical Necessity - Tobacco Use Smoking Status: Former smoker Assessment/Plan All Active Problems Non-STEMI (non-ST elevated myocardial infarction) (Acute) Near syncope (Acute) 1. NSTEMI, syncope - cardiology consulted. Multiple syncopal episodes. No dysrhythmias found on prior workups. AICD in place - dying battery. Prior seizure workups negative. No CP, palp, SOB. Trop peak at 1.100. Has had indeterminate tilt table test in past. Obtain echo. 2/6 murmur noted best over the 4th IC space LSB. EKG with nonspecific changes. Negative orthos in ER. Cannot have MRI 2/2 AICD. 2. Hx CAD prior sent. On Coreg, aspirin. No statin 2/2 intolerance. 3. CKD III - stable. 4. HLD - intolerant to statins. abnormal lipid profile. DVT ppx: heparin This patient was seen by Angel Garcia PA-C under the supervision of Dr. Jackman. <Evelio Jackman - Last Filed: 11/10/18 14:06> - Physical Exam Vital Signs Temp Pulse Resp BP Pulse Ox 97.9 F 60 15 83/52 L 100 11/10/18 08:55 11/10/18 08:55 11/10/18 08:55 11/10/18 13:40 11/10/18 08:55 Oxygen Delivery Method Room Air Weight: 83.6 kg Body Mass Index (BMI) 25.7 Intake and Output for Last 24 Hours 11/08/18 11/09/18 11/10/18 23:59 23:59 23:59 Intake Total 1146 / 1146 Balance 1146 / 1146 Laboratory Tests Past 24 Hrs 11/09/18 11/09/18 11/10/18 22:30 22:30 01:57 WBC 4.1 L RBC 4.01 L Hgb 12.3 L Hct 36.2 L MCV 90.3 MCH 30.7 MCHC 34.0 RDW 12.9 RDW Differential 42.3 Plt Count 115 L MPV 9.7 Immature Gran % (Auto) 0.500 Neut % (Auto) 56.8 Lymph % (Auto) 25.4 [place] % (Auto) 12.9 H Eos % (Auto) 3.9 Baso % (Auto) 0.5 Absolute Neuts (auto) 2.3 Absolute Lymphs (auto) 1.04 Total Counted Not Reportable PT INR Sodium 141 Potassium 4.6 Chloride 106 Carbon Dioxide 26.0 Anion Gap 9 BUN 32 H Creatinine 1.74 H Estim Creat Clear Calc 36.06 Est GFR (MDRD) Af Amer 49 L Est GFR (MDRD) Non-Af 40 L BUN/Creatinine Ratio 18.4 Glucose 94 Calcium 8.9 Magnesium Total Bilirubin 0.60 AST 25 ALT 15 L Alkaline Phosphatase 69 Troponin I 0.905 H* 1.100 H* Total Protein 6.8 Albumin 3.9 Globulin 2.9 Albumin/Globulin Ratio 1.3 Triglycerides Cholesterol LDL Cholesterol VLDL Cholesterol HDL Cholesterol Urine Color Urine Clarity Urine pH Ur Specific [place] Urine Protein Urine Glucose (UA) Urine Ketones Urine Occult Blood Urine Nitrite Urine Bilirubin Urine Urobilinogen Ur Leukocyte Esterase Urine RBC Urine WBC Ur Squamous Epith Cells Urine Bacteria Urine Mucus 11/10/18 11/10/18 11/10/18 04:10 04:48 04:48 WBC RBC Hgb Hct MCV MCH MCHC RDW RDW Differential Plt Count MPV Immature Gran % (Auto) Neut % (Auto) Lymph % (Auto) [place] % (Auto) Eos % (Auto) Baso % (Auto) Absolute Neuts (auto) Absolute Lymphs (auto) Total Counted PT 14.5 INR 1.2 Sodium Potassium Chloride Carbon Dioxide Anion Gap BUN Creatinine Estim Creat Clear Calc Est GFR (MDRD) Af Amer Est GFR (MDRD) Non-Af BUN/Creatinine Ratio Glucose Calcium Magnesium 2.4 Total Bilirubin AST ALT Alkaline Phosphatase Troponin I 0.751 H* Total Protein Albumin Globulin Albumin/Globulin Ratio Triglycerides 285 H Cholesterol 209 H LDL Cholesterol 123 VLDL Cholesterol 57 H HDL Cholesterol 29 L Urine Color Yellow Urine Clarity Clear Urine pH 6.5 Ur Specific [place] 1.010 Urine Protein 15 H Urine Glucose (UA) Normal Urine Ketones 5 H Urine Occult Blood Negative Urine Nitrite Negative Urine Bilirubin Negative Urine Urobilinogen Normal Ur Leukocyte Esterase Negative Urine RBC 0 SEEN Urine WBC 0 SEEN Ur Squamous Epith Cells 0 SEEN Urine Bacteria 0 SEEN Urine Mucus 0 SEEN Assessment/Plan This patient was seen in conjunction with Angel Garcia PA-C . I have independently interviewed and examined the patient and reviewed pertinent historical, laboratory, and other data. Please refer to Angel Garcia PA-C note for details of this patient's presentation, findings, and recommendations. I have reviewed Angel Garcia PA-C note and concur with documented findings. In brief, patient is a 78-year-old gentleman with past medical history significant CAD with previous CABG and subsequent angioplasty and ischemic cardiomyopathy who presented with syncopal episode found to have elevated troponin consistent with non-STEMI Physical Examination: GENERAL: cooperative HEENT: Atraumatic; EYES; Anicteric, Normal Conjunctiva NECK; supple, normal thyroid, RESPIRATORY: Diminished to auscultation CARDIOVASCULAR: Regular S1 S2, GI: soft, non-tender, normoactive bowel sounds, NEURO: Awake; no lateralizing signs. SKIN: No Rash PSYCH; Normal affect Assessment: 1. Syncopal episode 2. Acute non-STEMI 3. CAD with previous CABG and subsequent stent placement 4. 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 CKD stage III 6. Dyslipidemia Recommendations: 1. I have discussed the results of my overview and impressions with the patient 2. Options for management were reviewed Code Visit Inpatient E&M: 77612 Subs Hosp L3
--- NOTE | 2018-11-10 14:04 | ECHOD_ITS ---
Reason For Study: NSTEMI Procedure This was a 2D Doppler, Color Flow transthoracic echocardiogram. The exam was of adequate technical quality. Exam performed portable in patient room. Left Ventricle Mildly dilated left ventricle. Mild segmental systolic dysfunction (see wall motion). The estimated ejection fraction is 50 %. Posterior-Basal: Akinetic. Infero-Basal: Akinetic. Basal inferoseptal: Hypokinetic. Mid-Posterior: Hypokinetic. Mid-Inferior: Hypokinetic. Right Ventricle Normal RV size. ICD or pacer leads identified within the right ventricle. Normal systolic function. Atria The left atrium is mildly enlarged. Normal right atrium. ICD or pacer leads identified within the right atrium. No doppler evidence for ASD. Mitral Valve There is no mitral annular calcification. Mild diffuse mitral valve thickening. The mitral valve chordae are thickened and/or calcified. Mild (1+) mitral valve insufficiency. Tricuspid Valve Normal tricuspid valve. Moderate (2+) tricuspid valve insufficiency. Right ventricular systolic pressure estimated to be 20 mmHg. Aortic Valve Trisinus/trileaflet aortic valve. Mild diffuse aortic valve thickening. Moderate focal aortic valve calcification. Mild aortic stenosis. Trivial aortic valve insufficiency. Pulmonic Valve The pulmonic valve is not well visualized. Mild (1+) pulmonic valve insufficiency. Great Vessels Normal sized aortic root. Calcified aortic root. Pericardium/Pleural No pericardial effusion. MMode/2D Measurements & Calculations LVIDd: 5.4 cm IVSd: 1.3 cm LVOT diam: 2.1 cm LVIDs: 4.6 cm LVPWd: 1.1 cm LVOT area: 3.5 cm2 FS: 15.0 % Ao root diam: 3.6 cm LAV(MOD-bp): 86.1 ml LVAd ap4: 39.0 cm2 LA dimension: 5.2 cm LAV(MOD-bp) Indexed: 42.3 ml/m2 EDV(MOD-sp4): 143.2 ml LAV(MOD-sp2): 81.4 ml EDV(sp4-el): 141.9 ml LAV(MOD-sp4): 89.9 ml LVAs ap4: 27.8 cm2 ESV(MOD-sp4): 88.3 ml ESV(sp4-el): 85.5 ml EF(MOD-sp4): 38.3 % EF(sp4-el): 39.7 % SV(MOD-sp4): 54.8 ml SV(sp4-el): 56.4 ml LA A4 area: 25.1 cm2 RA A4 area: 20.1 cm2 Time Measurements MV dec time: 0.28 sec Doppler Measurements & Calculations MV E max gio: 65.1 cm/sec Lat Peak E' Gio: 6.7 cm/sec Med Peak E' Gio: 5.2 cm/sec MV A max gio: 62.4 cm/sec E/E' lat: 9.7 E/E' med: 12.5 MV E/A: 1.0 MV V2 max: 70.5 cm/sec MV P1/2t max gio: 62.8 cm/sec Ao V2 max: 148.2 cm/sec MV max P.0 mmHg MV P1/2t: 183.1 msec Ao max P.8 mmHg MV V2 mean: 44.2 cm/sec MV mean P.88 mmHg MV dec slope: 100.4 cm/sec2 GARY(V,D): 1.8 cm2 MV V2 VTI: 33.1 cm MVA(P1/2t): 1.2 cm2 AI max gio: 340.9 cm/sec LV V1 max: 77.7 cm/sec MR max gio: 417.6 cm/sec AI max P.5 mmHg LV V1 max P.4 mmHg MR max P.7 mmHg MR mean gio: 309.6 cm/sec AI dec slope: 122.3 cm/sec2 MR mean P.8 mmHg AI P1/2t: 816.6 msec MR VTI: 154.8 cm PA V2 max: 77.0 cm/sec PI end-d gio: 98.2 cm/sec TR max gio: 207.1 cm/sec TR max P.2 mmHg Interpretation Summary Mildly dilated left ventricle. Mild segmental systolic dysfunction (see wall motion). The estimated ejection fraction is 50 %. The left atrium is mildly enlarged. Mild diffuse mitral valve thickening. The mitral valve chordae are thickened and/or calcified. Mild (1+) mitral valve insufficiency. Moderate (2+) tricuspid valve insufficiency. Mild aortic stenosis. Trivial aortic valve insufficiency. Mild (1+) pulmonic valve insufficiency. Calcified aortic root. Right ventricular systolic pressure estimated to be 20 mmHg. Transmitral diastolic flow velocities suggest diastolic dysfunction (pseudonormal pattern). Ordering Physician: Angel Garcia Referring Physician: MD Mauricio David Performed By: Tony Nunes RCS
--- NOTE | 2018-11-10 15:51 | CASEMGMT ---
SW met with patient, introduced self and role at [facility]. SW spoke with patient about assisted living. SW gave him a list of local [place] facilities. SW also gave patient the phone number for [facility] per his request. He already has [facility]'s number. Upon further discussion SW suggested independent living at one of the [place] facilities as he appears to be quite independent. SW also spoke with patient regarding the loss of his sister. He shared the story of what happened with SW. SW provided emotional support. SW also gave him a pamphlet on [facility]. He thanked SW for asking and listening. Roslyn GOODEN MSW
--- NOTE | 2018-11-10 17:17 | CON.PCM_ITS ---
Reason for Consult Date of Consultation: 11/10/18 History of Present Illness: The patient is a 78 year old M with a significant history of kidney cancer status post nephrectomy; CAD status post CABG x4 in , coronary stent placed in graft in May 1994 and angioplasty in March 1995. He most recently underwent cardiac catheterization and stenting of his circumflex artery in 2017 following spine disc surgery. In July of this year he apparently passed out while driving his car. 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 He was evaluated by electrophysiology and neurology at the [facility] no clear-cut reason was ascertained. His defibrillator was evaluated and no significant abnormality was noted. He presented with a syncopal episode while working and he did have some premonition so he had to squat and the next thing he found was that he had passed out and the neighbor called 911. He denies any nausea vomiting diaphoresis or chest pain. He was evaluated in the emergency room cardiac troponin enzymes were obtained were noted to be abnormal. He was admitted and cardiology called for further evaluation and management. He has denied any cardiac symptomatology since he was admitted. Past Medical History Allergies/Adverse Reactions: Allergies Penicillins Allergy (Verified 11/10/18 01:05) Unknown Home Medications: Ambulatory Orders Medication Instructions Recorded Ascorbic Acid [Vitamin C] 1,000 mg PO DAILY 03/23/17 Aspirin 81 mg PO DAILY 03/23/17 Carvedilol [Coreg (Beta Xochitl)] 3.125 tab PO BID 03/23/17 Diclofenac [Voltaren] 75 mg PO BID PRN PRN 03/23/17 Cholecalciferol (Vitamin D3) 2,000 unit PO DAILY 07/13/18 [Vitamin D3] Ubidecarenone [Coq-10] 100 mg PO DAILY 11/10/18 Past Medical History (Chronic Problems): Chronic Problems CAD (coronary artery disease) (Chronic) BPH (benign prostatic hyperplasia) (Chronic) Hypertension (Chronic) History of laminectomy (Chronic) L2-L4 S/P ICD (internal cardiac defibrillator) procedure (Chronic) Chronic kidney disease, stage III (moderate) (Chronic) Status post right nephrectomy Surgical History: - - CABG, multiple cardiac stent placement, lower mandible bilateral reduction, laminectomy L2-L4, right nephrectomy - *Family History Maternal History Items: Cancer - Ovarian Paternal History Items: Diabetes Lives: Alone Smoking Status: Former smoker Alcohol: None Drugs: None Review of Systems - Review of Systems General: Denies: Fever, Night Sweats, Fatigue HEENT: Denies: Vision Change Cardiovascular: Denies: Chest Discomfort, Shortness of Breath, Orthopnea, PND, Peripheral Edema, Palpitations, Lightheadedness, Dizziness, Near Syncope, Syncope Respiratory: Denies: Cough, Sputum Production, Hemoptysis Gastrointestinal: Denies: Hematemesis, Hematochezia, Melena Genitourinary: Denies: Dysuria, Hematuria Muscoloskeletal: Denies: Myalgias Skin: Denies: Rash Neurological: Reports: Dizziness Psychiatric: Denies: Anxiety Endocrine: Denies: Unexplained Weight Loss Subjectve: Pleasant gentleman in no apparent distress Objective: Vital Signs Temp Pulse Resp BP Pulse Ox 98.1 F 63 16 109/55 L 97 11/10/18 14:55 11/10/18 15:31 11/10/18 14:55 11/10/18 14:55 11/10/18 14:55 Oxygen Delivery Method Room Air Weight: 184 lb 4.903 oz Body Mass Index (BMI) 25.7 Intake and Output for Last 24 Hours 11/08/18 11/09/18 11/10/18 23:59 23:59 23:59 Intake Total 1146 / 1146 Balance 1146 / 1146 General: Awake, Alert, Oriented x 3 HEENT: PERRL, EOMI, Sclera Non Icteric Neck: Supple, Good ROM, No Lymph Node Enlargement Lungs: Clear to auscultation Cardiovascular: Regular Rhythm, Normal S1, Normal S2, No Murmurs, No Rubs, No Gallops Vascular: No Carotid Bruits, Normal Femoral Pulses, Normal Radial Pulses, Normal Dorsalis Pedal Pulse, Normal Posterior Tibial Pulses Abdomen: Bowel Sounds Present, Soft, Non Tender, No HSM, No Organomegaly Extremities: No Cyanosis, No Clubbing, No edema Musculoskeletal: No Erythema Skin: No Rashes Lymphatic: No Lymph Node Enlargement Neurological: No Focal Motor or Sensory Deficit Psych/Mental Status: Appropriate 11/09/18 22:30: WBC 4.1 L, RBC 4.01 L, Hgb 12.3 L, Hct 36.2 L, MCV 90.3, MCH 30.7, MCHC 34.0, RDW 12.9, RDW Differential 42.3, Plt Count 115 L, MPV 9.7, Immature Gran % (Auto) 0.500, Neut % (Auto) 56.8, Lymph % (Auto) 25.4, [place] % (Auto) 12.9 H, Eos % (Auto) 3.9, Baso % (Auto) 0.5, Absolute Neuts (auto) 2.3, Total Counted Not Reportable 11/09/18 22:30: Sodium 141, Potassium 4.6, Chloride 106, Carbon Dioxide 26.0, Anion Gap 9, BUN 32 H, Creatinine 1.74 H, Est GFR (MDRD) Af Amer 49 L, Est GFR (MDRD) Non-Af 40 L, BUN/Creatinine Ratio 18.4, Glucose 94, Calcium 8.9, Total Bilirubin 0.60, Troponin I 0.905 H* 11/10/18 01:57: Troponin I 1.100 H* 11/10/18 04:10: Urine Color Yellow, Urine Clarity Clear, Urine pH 6.5, Ur Specific [place] 1.010, Urine Protein 15 H, Urine Glucose (UA) Normal, Urine Ketones 5 H, Urine Occult Blood Negative, Urine Nitrite Negative, Urine Bilirubin Negative, Urine Urobilinogen Normal, Ur Leukocyte Esterase Negative, Urine RBC 0 SEEN, Urine WBC 0 SEEN 11/10/18 04:48: PT 14.5, INR 1.2 11/10/18 04:48: Magnesium 2.4, Troponin I 0.751 H*, Triglycerides 285 H, Cholesterol 209 H, LDL Cholesterol 123, VLDL Cholesterol 57 H, HDL Cholesterol 29 L Rhythm: EKG:NSR with 65 ECHO:EF 50% Assessment/Plan 1. Syncope * Patient presented with a syncopal episode. The etiology is not entirely clear he has had recurrence of the above with no fibrillator discharge or abnormal rhythms. His last ICD evaluation was in July of this year and it did not demonstrate any obvious prolonged VT episodes. * It may be helpful to have him discuss this with the electrical design technician further. * Would however recommend at this time that he be started on amiodarone loading dose assuming this is arrhythmogenic. His echocardiogram demonstrates an ejection fraction of approximately 50%. There is segmental wall motion abnormalities noted. * He was also noted to be hypotensive and he has been administered intravenous fluids with improvement in his blood pressure. This could be contributing to his syncopal episodes as well. 2. Coronary artery disease * Does have evidence of coronary artery disease with mild cardiac enzyme elevation. He recently underwent angioplasty and stenting of the circumflex a rtery. Because of his unilateral kidney as well as his renal insufficiency I would be hesitant to proceed with any cardiac catheterization unless there is a significant territory of ischemia detected. I will therefore recommend that we perform a pharmacologic myocardial perfusion stress test and depending on those findings further risk stratification measures instituted. * 3. Status post ICD implantation * He does have a history of ICD implantation followed up at the [facility] it was most recently interrogated as noted above. He will continue to follow- up in the ICD clinic. * 4. Cardiomyopathy * He does have history of ischemic cardiomyopathy. He has not had any heart failure symptoms and will continue to monitor him closely. He will continue with his beta-xochitl. * * ELIEL Inhibition is contraindicated due to his renal dysfunction. * Thank you for allowing me to participate in the care of your patient. Please don't hesitate to call if any issues arise
[2018-11-10] MEDS: 0.9% NaCl Peripheral Flush Adult/Peds IV (17:58)
--- NOTE | 2018-11-10 21:13 | NURSING ---
Patient refused to start on amiodarone tonight d/t feeling like an arrhythmia was not the clear cause of his syncopal episode. States he has been on meds in the past that did not work and caused bad side effects. States he does not want to start something without talking to the doctor further. This RN read the benefits sales consultant note to patient. This RN explained that it is patient right to refuse any treatment he is not comfortable with. Patient receptive to reading [employer] teaching packet on amiodarone at this time.
[2018-11-11] MEDS: 0.9% Normal Saline 1,000 ML 75 ML IV (00:42)
[2018-11-11 02:55] VITALS: BP 138/75; PULSE 75; RESP 16; TEMP 37; O2SAT 96
[2018-11-11 03:03] VITALS: PULSE 85
[2018-11-11 05:49] LABS: Absolute Lymphocyte Count 1.31 X10^3/ul (0.83-4.51); Absolute Neutrophil Count 1.4 X10^3/uL (2.0-7.7); Basophil# 0.01 X10^3/uL; Basophil% 0.3 % (0-1); Eosinophil# 0.26 X10^3/uL; Eosinophils% 7.2 % (0-5); Hematocrit 33.9 % (40-54); Hemoglobin 11.6 g/dl (13.0-16.5); Lymphocyte # 1.31 X10^3/ul (4.0); Lymphocyte % 36.5 % (19-41); Mean Corp Hgb Conc 34.2 g/gl (32-36); Mean Corpuscular Hgb 30.9 pg (27.0-32.0); Mean Corpuscular Volume 90.2 fL (80-94); Monocyte# 0.56 X10^3/uL; Monocyte% 15.6 % (0-10); Neutrophil # 1.44 X10^3/uL (2.7-7.7); Neutrophil % 40.1 % (47-70); Platelet Count 110 K/mm3 (150-450); RBC Distribution Width CV 12.6 % (11.6-14.6); RBC Distribution Width SD 40.5 fl (35.1-43.9); Red Blood Count 3.76 M/mm3 (4.6-6.2); White Blood Count 3.6 K/mm3 (4.4-11.0)
[2018-11-11 05:50] LABS: International Normalized Ratio 1.2; Prothrombin Time (Protime)PT. 14.5 SECONDS (11.7-14.9)
[2018-11-11 05:55] VITALS: BP 119/71; PULSE 72; RESP 16; TEMP 37; O2SAT 94
--- NOTE | 2018-11-11 05:55 | EKG12_ITS ---
Test Reason : AM Blood Pressure : / mmHG Vent. Rate : 062 BPM Atrial Rate : 062 BPM P-R Int : 210 ms QRS Dur : 102 ms QT Int : 460 ms P-R-T Axes : 047 061 063 degrees QTc Int : 466 ms Sinus rhythm with 1st degree A-V block Nonspecific ST abnormality Abnormal ECG Confirmed by LAMONT JACOME, BRENDA ([id number]), school photograph editor SAMSON GIBSON ([id number]) on 11/16/2018 1:53:02 PM Referred By: ALLIE Confirmed By:BRENDA MIGUEL MD
[2018-11-11] MEDS: Aspirin 81 MG TAB.CHEW PO (05:58)
[2018-11-11 06:04] LABS: POSITIVE COUNT NO; POSITIVE DIFFERENTIAL NO; POSITIVE MORPHOLOGY NO
[2018-11-11 06:12] LABS: Anion Gap 7 (5-15); BUN 34 mg/dL (7-18); BUN/Creat Ratio 22.5 RATIO (10-20); Calcium,Total 8.6 mg/dL (8.5-10.1); Chloride 111 mmol/L (98-107); Creatinine, Serum 1.51 mg/dL (0.70-1.30); EST Glomerular Filtration Rate 48 mL/min (>60); Est Glom Filt Rate - Afr Amer 58 mL/min (>60); Estimated Creatinine Clearance 41.56 ml/min; Glucose 86 mg/dL (74-106); Potassium 4.6 mmol/L (3.5-5.1); Sodium Level 142 mmol/L (136-145)
--- NOTE | 2018-11-11 08:52 | STRESSREP ---
Stress Test Report Pharmacologic myocardial perfusion stress test. 78-year-old male with a history of coronary artery disease and previous myocardial infarction. Stress protocol: Resting EKG demonstrates normal sinus rhythm with a rate of 64 bpm normal intervals are noted resting blood pressures 140/82 mmHg. 0.4 mg of regadenoson was infused per usual protocol followed Intravenous saline flush injection continuous EKG monitoring was performed. Patient maintained sinus rhythm throughout the recording there were no ST or T wave changes noted suggest abnormal flow reserve. The maximum heart rate was 82 bpm which was 58% of maximum predicted heart rate the maximum workload was 1 metabolic equivalent. The resting blood pressure was 140/82 with a final blood pressure 114/64. Myocardial perfusion protocol. 11.3 mCi of technetium 99m sestamibi was injected at rest. 0.4 mg of regadenoson was infused per usual protocol peak infusion 33.4 mCi of technetium 99m sestamibi was injected stress images were obtained stress and rest images were reconstructed and compared in the short axis vertical and horizontal long axis. Gated images were also obtained Perfusion SPECT analysis: Review of the stress images demonstrate a normal cardiac silhouette size. There is uniform perfusion noted in the septum anterior wall with an extensive defect noted in the basal to mid inferior wall and extending to the inferolateral wall. This is present on the stress and rest images to a similar extent. There is a very small portion of the basal anterolateral wall with minimal trung-infarct ischemia. No significant ischemic sounds are noted. Gated SPECT analysis: The gated ejection fraction is noted to be 32% with akinesis of the basal inferior wall and global hypokinesis. Conclusion: Myocardial perfusion stress test with extensive inferior infarct extending to the inferolateral wall. Minimal basal anterolateral trung-infarct ischemia. Cardiomyopathy noted.
--- NOTE | 2018-11-11 09:00 | PN.CARD_ITS ---
Subjectve: Patient seen and evaluated. Objective: Vital Signs Temp Pulse Resp BP Pulse Ox 98.6 F 72 16 119/71 94 11/11/18 05:55 11/11/18 05:55 11/11/18 05:55 11/11/18 05:55 11/11/18 05:55 Oxygen Delivery Method Room Air Weight: 184 lb 4.903 oz Body Mass Index (BMI) 25.7 Intake and Output for Last 24 Hours 11/09/18 11/10/18 11/11/18 23:59 23:59 23:59 Intake Total 2746 / 2746 398 / 398 Balance 2746 / 2746 398 / 398 General: Awake, Alert, Oriented x 3 HEENT: PERRL, EOMI, Sclera Non Icteric Neck: Supple, Good ROM, No Lymph Node Enlargement Lungs: Clear to auscultation Cardiovascular: Regular Rhythm, Normal S1, Normal S2, No Murmurs, No Rubs, No Gallops Vascular: No Carotid Bruits, Normal Femoral Pulses, Normal Radial Pulses, Normal Dorsalis Pedal Pulse, Normal Posterior Tibial Pulses Abdomen: Bowel Sounds Present, Soft, Non Tender, No HSM, No Organomegaly Extremities: No Cyanosis, No Clubbing, No edema Musculoskeletal: No Erythema Skin: No Rashes Lymphatic: No Lymph Node Enlargement Neurological: No Focal Motor or Sensory Deficit Psych/Mental Status: Appropriate 11/11/18 05:12: Sodium 142, Potassium 4.6, Chloride 111 H, Carbon Dioxide 24.0, Anion Gap 7, BUN 34 H, Creatinine 1.51 H, Est GFR (MDRD) Af Amer 58 L, Est GFR (MDRD) Non-Af 48 L, BUN/Creatinine Ratio 22.5 H, Glucose 86, Calcium 8.6 11/11/18 05:12: WBC 3.6 L, RBC 3.76 L, Hgb 11.6 L, Hct 33.9 L, MCV 90.2, MCH 30.9, MCHC 34.2, RDW 12.6, RDW Differential 40.5, Plt Count 110 L, MPV 10.0, Immature Gran % (Auto) 0.300, Neut % (Auto) 40.1 L, Lymph % (Auto) 36.5, [place] % (Auto) 15.6 H, Eos % (Auto) 7.2 H, Baso % (Auto) 0.3, Absolute Neuts (auto) 1.4 L, Total Counted Not Reportable 11/11/18 05:12: PT 14.5, INR 1.2, APTT 32.0 Rhythm: EKG: ECHO: Stress Test: Cardiac Cath: PCI: CT Surgery: Holter monitor: EPS: PPM: CXR: Chest CT Scan: Medical Necessity - Tobacco Use Smoking Status: Former smoker Assessment/Plan 1. Syncope * Patient presented with a syncopal episode. The etiology is not entirely clear he has had recurrence of the above with no fibrillator discharge or abnormal rhythms. His last ICD evaluation was in July of this year and it did not demonstrate any obvious prolonged VT episodes. * It may be helpful to have him discuss this with the manager occupational further. * Would however recommend at this time that he be started on amiodarone loading dose assuming this is arrhythmogenic. His echocardiogram demonstrates an ejection fraction of approximately 50%. There is segmental wall motion abnormalities noted. * He was also noted to be hypotensive and he has been administered intravenous fluids with improvement in his blood pressure. This could be contributing to his syncopal episodes as well. 2. Coronary artery disease * Does have evidence of coronary artery disease with mild cardiac enzyme elevation. He recently underwent angioplasty and stenting of the circumflex artery. Because of his unilateral kidney as well as his renal insufficiency I would be hesitant to proceed with any cardiac catheterization unless there is a significant territory of ischemia detected. * The pharmacologic myocardial perfusion stress test performed today demonstrated an extensive area of basal to mid inferior infarct extending to the inferolateral segment. There is a tiny portion of mild anterolateral trung-infarct ischemia. * Based on the above and consideration of his other comorbidities I would recommend that we manage him with aggressive medical therapy. * 3. Status post ICD implantation * He does have a history of ICD implantation followed up at the [facility] it was most recently interrogated as noted above. He will continue to follow- up in the ICD clinic. * 4. Cardiomyopathy * He does have history of ischemic cardiomyopathy. He has not had any heart failure symptoms and will continue to monitor him closely. He will continue with his beta-geno. * * ELIEL Inhibition is contraindicated due to his renal dysfunction. * * He can be discharged for outpatient follow-up with his primary physician and primary data analytics specialist. Thank you for allowing me to participate in the care of your patient. Please don't hesitate to call if any issues arise
--- NOTE | 2018-11-11 09:59 | CASEMGMT ---
Patient stating he does have a living will and a health care POA naming his sister Amara Caicedo. These documents are not in pt echart. SW met with pt and informed [facility] does not have a copy of AD and requested pt bring copy in to scan into the system. Pt understanding and agreeable. AMILCAR Jeffrey
[2018-11-11 10:05] VITALS: PULSE 56
[2018-11-11 10:09] VITALS: BP 112/56; PULSE 60; RESP 16; TEMP 36.6; O2SAT 98
[2018-11-11] MEDS: Heparin Injection (Vial) 5,000 UNIT/ML VIAL 5000 UNIT SC (10:13)
[2018-11-11] MEDS: Carvedilol 3.125 MG TABLET PO (10:13)
--- NOTE | 2018-11-11 10:21 | DCINST_ITS ---
- Discharge Diagnoses Current Active Problems: Current Active and Chronic Problems Non-STEMI (non-ST elevated myocardial infarction) (Acute) You will use the following diet at home:: Cardiac Allergies/Adverse Reactions: Allergies Penicillins Allergy (Verified 11/10/18 01:05) Unknown Medications to take at Discharge Ascorbic Acid [Vitamin C] 1,000 mg PO DAILY 03/23/17 Aspirin 81 mg PO DAILY 03/23/17 Carvedilol [Coreg (Beta Xochitl)] 3.125 tab PO BID 03/23/17 Diclofenac [Voltaren] 75 mg PO BID PRN PRN 03/23/17 Cholecalciferol (Vitamin D3) [Vitamin D3] 2,000 unit PO DAILY 07/13/18 Ubidecarenone [Coq-10] 100 mg PO DAILY 11/10/18 Primary Care Physician: David Martínez MD [Primary Care Provider] - Please follow up with your Primary Care Physician in: in 1-2 weeks Test Results: Test results from this visit will be discussed in further detail at your follow- up appointment, if applicable. Please Follow Up With: PRIMARY FUNCTIONAL TESTER When: IN 1 WEEK Proposed Discharge Date: 11/11/18
--- NOTE | 2018-11-11 10:22 | DS.PCM_ITS ---
Discharge Date and Diagnosis - Problem List Patient Problems: Active and Suspected Problems Non-STEMI (non-ST elevated myocardial infarction) (Acute) Date of Admission: 11/10/18 Date of Discharge: 11/11/18 - Primary Discharge Diagnosis Active and Suspected Problems Non-STEMI (non-ST elevated myocardial infarction) (Acute) - Secondary Discharge Diagnosis Chronic Problems CAD (coronary artery disease) (Chronic) BPH (benign prostatic hyperplasia) (Chronic) Hypertension (Chronic) History of laminectomy (Chronic) L2-L4 S/P ICD (internal cardiac defibrillator) procedure (Chronic) Chronic kidney disease, stage III (moderate) (Chronic) Status post right nephrectomy Hospital Course and Treatment Operations: None Summary of Care Provided: In brief, patient is a 78-year-old gentleman with past medical history significant CAD with previous CABG and subsequent angioplasty and ischemic cardiomyopathy who presented with syncopal episode found to have elevated troponin consistent with non-STEMI 1. Syncopal episode and patient was placed in a monitored bed for continuous telemetry monitoring. Cardiology was consulted. Patient underwent subsequent evaluation including a 2D echo which demonstrated EF of 50%. Dr. Johnson who saw the patient in consultation recommended for patient to be discharged home on amiodarone. Prescription was written this discussed with the patient who declined the amiodarone he instead insisted on following up with his primary holiday detector operator for subsequent treatment 2. Acute non-STEM she underwent a nuclear stress test on 11/28/2018 which demonstrated an extensive area of basal to mid inferior infarct extending to the inferolateral segment. There is a tiny portion of mild anterolateral trung- infarct ischemia. Cardiology recommended optimization of medical therapy. Patient is already on aspirin as well as beta-blockers. Did discuss the possibility of adding statins patient however states that he has tried all statins and in view of significant myopathy was taken off by his holiday detector operator 3. CAD with previous CABG and subsequent stent placement 4. 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 CKD stage III 6. Dyslipidemia Patient Problems: Active and Suspected Problems Non-STEMI (non-ST elevated myocardial infarction) (Acute) Objective: GENERAL: cooperative HEENT: Atraumatic; EYES; Anicteric, Normal Conjunctiva NECK; supple, normal thyroid, RESPIRATORY: Diminished to auscultation CARDIOVASCULAR: Regular S1 S2, GI: soft, non-tender, normoactive bowel sounds, NEURO: Awake; no lateralizing signs. SKIN: No Rash PSYCH; Normal affect - Physical Exam Vital Signs Temp Pulse Resp BP Pulse Ox 98 F 60 16 112/56 L 98 11/11/18 10:09 11/11/18 10:09 11/11/18 10:09 11/11/18 10:09 11/11/18 10:09 Oxygen Delivery Method Room Air Weight: 83.6 kg Body Mass Index (BMI) 25.7 Intake and Output for Last 24 Hours 11/09/18 11/10/18 11/11/18 23:59 23:59 23:59 Intake Total 2746 / 2746 398 / 398 Balance 2746 / 2746 398 / 398 Laboratory Tests Past 24 Hrs 11/11/18 11/11/18 11/11/18 05:12 05:12 05:12 WBC 3.6 L RBC 3.76 L Hgb 11.6 L Hct 33.9 L MCV 90.2 MCH 30.9 MCHC 34.2 RDW 12.6 RDW Differential 40.5 Plt Count 110 L MPV 10.0 Immature Gran % (Auto) 0.300 Neut % (Auto) 40.1 L Lymph % (Auto) 36.5 [place] % (Auto) 15.6 H Eos % (Auto) 7.2 H Baso % (Auto) 0.3 Absolute Neuts (auto) 1.4 L Absolute Lymphs (auto) 1.31 Total Counted Not Reportable PT 14.5 INR 1.2 APTT 32.0 Sodium 142 Potassium 4.6 Chloride 111 H Carbon Dioxide 24.0 Anion Gap 7 BUN 34 H Creatinine 1.51 H Estim Creat Clear Calc 41.56 Est GFR (MDRD) Af Amer 58 L Est GFR (MDRD) Non-Af 48 L BUN/Creatinine Ratio 22.5 H Glucose 86 Calcium 8.6 Discharge Diet: Low fat/ Low Cholesterol Discharge Activity: Return to Normal Activity Home Medications: Medications to take at Discharge Ascorbic Acid [Vitamin C] 1,000 mg PO DAILY 03/23/17 Aspirin 81 mg PO DAILY 03/23/17 Carvedilol [Coreg (Beta Xochitl)] 3.125 tab PO BID 03/23/17 Diclofenac [Voltaren] 75 mg PO BID PRN PRN 03/23/17 Cholecalciferol (Vitamin D3) [Vitamin D3] 2,000 unit PO DAILY 07/13/18 Ubidecarenone [Coq-10] 100 mg PO DAILY 11/10/18 Primary Care Physician: David Martínez MD [Primary Care Provider] - Please follow up with your Primary Care Physician in: in 1-2 weeks Please Follow Up With: PRIMARY CROP ADJUSTER When: IN 1 WEEK Disposition: Home Minutes spent on discharge:: 45 Medical Necessity - Tobacco Use Smoking Status: Former smoker Meaningful Use Info Meaningful Use Diagnoses (Choose all that apply): AMI - AMI Aspirin given w/in 24hrs of arrival?: Yes ASA at discharge?: Yes Statins at discharge?: No Reason statins not ordered:: Allergy [place]/ARB at discharge?: No Reason [place]/ARB not ordered:: Worsening renal dysfunctn Beta Xochitl at discharge?: Yes Done w/ Acute TX measure.: Yes Documented LVEF (%): 50 Code Visit Inpatient E&M: [id number] Disch Hosp
--- NOTE | 2018-11-13 14:36 | CASEMGMT ---
MICHAEL HARMON DC PHONE CALL DC DATE: 11/12/18 DC Disposition: Home LACE/STRATA: 03/14 No answer to phone call.
== END 2018-11-11 12:39 | disposition home or self-care (01) | DRG 282 ==
LOC: ED 23:32 → PCU 11-10 00:42
PROVIDERS: Internal Medicine Cardiovascular Disease; Physician Assistant; Admitting Provider Hospitalist; Emergency Provider Emergency Medicine; Family Provider Family Medicine; PCP Family Medicine; Visit Provider Internal Medicine
DX: I21.4 Non-ST elevation (NSTEMI) myocardial infarction (principal); R55 Syncope and collapse; I25.10 Atherosclerotic heart disease of native coronary artery without angina pectoris; N18.3 Chronic kidney disease, stage 3 (moderate); N40.0 Benign prostatic hyperplasia without lower urinary tract symptoms; I12.9 Hypertensive chronic kidney disease with stage 1 through stage 4 chronic kidney disease, or unspecified chronic kidney disease; Z95.1 Presence of aortocoronary bypass graft; Z87.891 Personal history of nicotine dependence; Z79.82 Long term (current) use of aspirin; Z95.810 Presence of automatic (implantable) cardiac defibrillator; Z95.5 Presence of coronary angioplasty implant and graft; Z85.528 Personal history of other malignant neoplasm of kidney; Z90.5 Acquired absence of kidney
CPT/HCPCS: 36415; 71045; 78452; 80048; 80053; 80061; 81001; 83735; 84484; 85025; 85610; 85730; 93005; 93017; 93306; 97162; 97166; 97802; 99285; A9500; J7030; J7040; Q9957; A4216; J2785

== ENCOUNTER 2018-12-24 13:11 | Observation (INO) | payer MEDICARE, BC, SELFPAY ==
[2018-11-10 01:01] VITALS: BMI 25.7
[2018-12-24] VITALS (10 sets, daily range): BP systolic 97–140; BP diastolic 57–94; PULSE 54–82; RESP 13–16; TEMP 36.5–36.8; O2SAT 97–99; BMI 26.9; BMI 25.7
--- NOTE | 2018-12-24 13:31 | RAD_ITS ---
STUDY: X-RAY CHEST REASON FOR EXAM: Male, 78 years old. Chest pain. Acute syncope. TECHNIQUE: Single AP portable view of the chest. COMPARISON: Comparison is made with prior study dated November 09, 2018. FINDINGS: EKG electrodes are seen. The lungs are clear and expanded. There is no demonstrated pleural abnormality. Sternal cerclage wires and vascular clips are present from a prior sternotomy and coronary artery bypass graft procedure (CABG). Borderline thyromegaly. A left-sided ICD is seen. Normal mediastinum and kenzie. Normal visualized pulmonary arteries. There is atherosclerotic calcification of the aortic arch with tortuosity. There are diffuse degenerative changes of the visualized thoracic spine. Normal visualized ribs, clavicles, and shoulders. There is no demonstrated abnormality of the visualized soft tissue structures of the upper abdomen. RAD/Chest 1 View (Portable) IMPRESSION: No acute abnormality is seen. Electronically Signed: Alok Condon, at 14:06 EDT , Service support ,
--- NOTE | 2018-12-24 13:32 | EKG12_ITS ---
Test Reason : SYNCOPE (CPR) Blood Pressure : / mmHG Vent. Rate : 052 BPM Atrial Rate : 052 BPM P-R Int : 240 ms QRS Dur : 104 ms QT Int : 508 ms P-R-T Axes : 057 047 084 degrees QTc Int : 472 ms Sinus bradycardia with 1st degree A-V block Possible Inferior infarct , age undetermined Abnormal ECG Confirmed by JUAN JACOME, KAYLEN ([id number]), publication editor RAMILA PIKE ([id number]) on 12/28/2018 1:02:03 PM Referred By: Joana Putnam Confirmed By:ARABELLA MARTINEZ MD
--- NOTE | 2018-12-24 13:33 | ED.VISSUMM ---
- ER Visit Summary Date of Service: 12/24/18 Chief Complaint: Syncopal episode History of Present Illness: The patient is a 78 M who presents with a syncopal episode that occurred today. Patient states he was eating lunch in a restaurant when he passed out. Patient states he fell onto the table. Patient states there were 2 nurses at the table next to him who lowered him to the ground. EMS reports that the nurses were unable to palpate a pulse started CPR. EMS states patient did have a pulse on their arrival. Patient also states he had some incontinence of urine when he passed out. Patient denies any chest pain. Patient states he does not get chest pain. Patient denies any shortness of breath. Patient denies any fevers. Patient denies any nausea vomiting. Patient denies any headaches. Physical Examination: Vital signs are stable except for a bradycardia of 56. Patient is afebrile. Patient is in no acute distress. Oral mucosa is pink and moist. Neck is supple. Trachea is midline. There is no JVD noted. Heart was regular and bradycardic. Lungs are clear and equal bilaterally. Abdomen is soft. Bowel sounds are normal. There is no tenderness. Cranial nerves II through XII are intact. There are no focal motor or sensory deficits noted. Test Results: EKG showed sinus bradycardia with a rate of 52. There is a first-degree AV block. There are Q waves noted in leads III and aVF. There are no acute ST or T wave changes. This was unchanged compared to previous EKG dated 11/11/2018. Portable chest x-ray was obtained and does not show any acute cardiopulmonary process. CBC was essentially within normal limits. Comprehensive metabolic profile showed a slightly elevated creatinine of 1.41. This was actually improved compared to previous results. Troponin was normal at less than 0.015. Emergency Department Course and Treatment: Patient pads were placed on the patient. Patient was placed on cardiac cath technician. Patient was given IV fluids. Patient was feeling better on reevaluation. Patient was advised of his results. Given the history, I recommended admitting the patient to the hospital. Case was discussed with the hospitalist. She will be in to evaluate the patient and admit the patient to the hospital. Disposition: Admit to hospital Impression: 1. Syncope This note was generated with [employer] dictation software. It may contain incorrect words, spelling, and punctuation that were not noted in review of the chart prior to signing ED Disposition - Plan for ED Patient: Disposition: Acute Care Hospital [facility] Diagnosis: Syncope Referrals: David Martínez MD [Primary Care Provider] -
[2018-12-24 13:48] LABS: Absolute Lymphocyte Count 1.27 X10^3/uL (0.83-4.51); Absolute Neutrophil Count 1.8 X10^3/uL (2.0-7.7); Basophil# 0.02 X10^3/uL; Basophil% 0.5 % (0-1); Eosinophil# 0.21 X10^3/uL; Eosinophils% 5.4 % (0-5); Hematocrit 32.2 % (40-54); Hemoglobin 11.2 g/dL (13.0-16.5); Lymphocyte # 1.27 X10^3/ul (4.0); Lymphocyte % 32.8 % (19-41); Mean Corp Hgb Conc 34.8 g/dL (32-36); Mean Corpuscular Hgb 31.3 pg (27.0-32.0); Mean Corpuscular Volume 89.9 fL (80-94); Mean Platelet Vol. 10.1 fl (6.2-12.0); Monocyte# 0.52 X10^3/uL; Monocyte% 13.4 % (0-10); NRBC Flagged by Analyzer 0 % (0-5); Neutrophil # 1.83 X10^3/uL (2.7-7.7); Neutrophil % 47.4 % (47-70); Platelet Count 127 K/mm3 (150-450); RBC Distribution Width CV 12.7 % (11.6-14.6); RBC Distribution Width SD 41.2 fl (35.1-43.9); Red Blood Count 3.58 M/mm3 (4.6-6.2); White Blood Count 3.9 K/mm3 (4.4-11.0)
[2018-12-24] MEDS: 0.9% Normal Saline 1,000 ML 1000 ML IV (13:55)
[2018-12-24 13:57] LABS: ALB/GLOB Ratio 1.4 RATIO (0.9-2.4); AST(SGOT) 17 U/L (15-37); Alanine Aminotransfer ALT/SGPT 15 U/L (16-61); Albumin, Serum 3.4 g/dL (3.2-5.0); Alkaline Phosphatase 61 U/L (45-117); Anion Gap 9 (5-15); BUN 36 mg/dL (7-18); BUN/Creat Ratio 25.5 RATIO (10-20); Calcium,Total 7.8 mg/dL (8.5-10.1); Chloride 112 mmol/L (98-107); Creatinine, Serum 1.41 mg/dL (0.70-1.30); EST Glomerular Filtration Rate 51 mL/min (>60); Est Glom Filt Rate - Afr Amer 62 mL/min (>60); Globulin 2.4 g/dL (2.2-4.2); Glucose 76 mg/dL (74-106); Protein, Total 5.8 g/dL (6.4-8.2); Sodium Level 142 mmol/L (136-145)
--- NOTE | 2018-12-24 15:00 | PCM.HP.STD ---
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 (3) Syncope Status: Acute (4) Renal cancer Status: Chronic (5) History of coronary artery stent placement Status: Resolved Comment: Stent-SVG 05/1994, POBA 03/1995, Stent-LCx 2016 (6) H/O coronary artery bypass surgery Status: Chronic Comment: CABG x 4 (7) Essential (primary) hypertension Status: Chronic (8) History of implantable cardiac defibrillator (ICD) Status: Chronic (9) Atherosclerosis of coronary artery of [place] heart without angina pectoris Status: Chronic (10) Non-STEMI (non-ST elevated myocardial infarction) Status: Resolved (11) Chronic kidney disease, stage III (moderate) Status: Chronic Comment: Status post right nephrectomy History of Present Illness Date of Admission: 12/24/18 Chief Complaint: Syncope. The patient is a 78 year old M who presents the emergency room following a syncopal episode while eating lunch today. Patient reports he has had 4 syncopal episodes since July of this year. He was recently admitted November 10, 2018 following syncopal episode. His work-up was unremarkable and he was discharged home. Patient follows with [facility] cardiology and neurology. He states during previous syncopal episodes he was incontinent of urine. He reports he has had EMG, EEG and neurology work-up has been unremarkable. Patient follows with Dr. Sanders, [facility] cardiology/section plotter operator. He reports he had a cardiology visit in November where he was told he had a prior episode of V. tach which was suspected to occur during syncopal episode in which AICD fired. He also reports he is due to have AICD changed January 08 due requiring a battery update. He denies chest pain, palpitations or other associated symptoms related to syncopal events. He does state episodes typically occur earlier in the day. He has a past medical history of CAD status post CABG, stent placement and angioplasty, chronic kidney disease stage III, hyperlipidemia, BPH, status post AICD. Past Medical History Past Medical History (Chronic Problems): Chronic Problems (Last Updated 11/26/18 @ 22:29 by Lisa Pinon) Ischemic cardiomyopathy (Chronic) Old inferior wall myocardial infarction (Chronic) Renal cancer (Chronic) H/O coronary artery bypass surgery (Chronic ~1979) CABG x 4 1980's Essential (primary) hypertension (Chronic) History of implantable cardiac defibrillator (ICD) (Chronic) Atherosclerosis of coronary artery of [place] without angina pectoris (Chronic) Chronic kidney disease, stage III (moderate) (Chronic) Status post right nephrectomy Medical History: Medical History (Last Updated 11/26/18 @ 22:29 by Lisa Pinon) Ischemic cardiomyopathy (Chronic) I25.5 Old inferior wall myocardial infarction (Chronic) I25.2 Syncope (Acute) R55 Renal cancer (Chronic) C64.9 Essential (primary) hypertension (Chronic) I10 Atherosclerosis of coronary artery of [place] without angina pectoris (Chronic) I25.10 Non-STEMI (non-ST elevated myocardial infarction) (Resolved) I21.4 Chronic kidney disease, stage III (moderate) (Chronic) N18.3 Status post right nephrectomy BPH (benign prostatic hyperplasia) N40.0 Allergies Penicillins Allergy (Verified 11/10/18 01:05) Unknown Home Medications: Ambulatory Orders Medication Instructions Recorded Ascorbic Acid [Vitamin C] 1,000 mg PO DAILY 03/23/17 Diclofenac [Voltaren] 75 mg PO BID PRN PRN 03/23/17 Cholecalciferol (Vitamin D3) 2,000 unit PO DAILY 07/13/18 [Vitamin D3] Ubidecarenone [Coq-10] 100 mg PO DAILY 11/10/18 Aspirin E.C. [Ecotrin] 81 mg PO DAILY@0800 12/24/18 Carvedilol 3.125 mg PO BID 12/24/18 Surgical History: Surgical History (Last Updated 11/26/18 @ 22:25 by Lisa Pinon) History of coronary artery stent placement (Resolved) Onset Date: 2016 Z95.5 Stent-SVG 05/1994, POBA 03/1995, Stent-LCx 2016 H/O coronary artery bypass surgery (Chronic) Onset Date: ~1979 Z95.1 CABG x 4 1979's History of implantable cardiac defibrillator (ICD) (Chronic) History of laminectomy Z98.890 L2-L4 History of right nephrectomy Z90.5 Surgical History: - - CABG, multiple cardiac stent placement, lower mandible bilateral reduction, laminectomy L2-L4, right nephrectomy, AICD placement. Psychiatric History: No pertinent psych hx Lives: Alone Smoking Status: Former smoker Alcohol: Occasional Drugs: None - *Family History Maternal History Items: Cancer - Ovarian Paternal History Items: Diabetes Review of Systems Constitutional: Denies: Chills, Fever, Weight Change HEENT: Denies: Head Aches, Sinus Congestion, Sinus Drainage Cardiovascular: Reports: Light Headedness, Syncope. Denies: Chest Pain, Edema, Palpitations Respiratory: Denies: Cough, Shortness of breath at rest, Sputum production Gastrointestinal: Denies: Abdominal Pain, Nausea, Vomiting Genitourinary: Denies: Dysuria Musculoskeletal: Denies: Joint Pain, Joint Tenderness Skin: Denies: Rash, Wounds Neurological: Denies: Numbness, Tingling, Focal weakness Psychiatric: Denies: Anxiety, Depression, Homicidal Ideations, Suicidal Ideations Hematologic/ Lymphatic: Denies: Easy Bruising, Easy Bleeding VTE Information - Inpt Only VTE Present on Admission: No VTE Mechan Device Prophylaxis: None VTE Pharm Prophylaxis ordered?: Yes Patient Problems: Active and Suspected Problems (Last Updated 11/26/18 @ 22:29 by Lisa Pinon) Syncope (Acute) - Physical Exam General: Alert, Oriented x3, Cooperative HEENT: Atraumatic, PERRLA, EOMI, Normocephalic Neck: Supple, No JVD, Negative Carotid Bruits Lungs: Clear to auscultation, Normal air movement Cardiovascular: Regular rate, Regular Rhythm, Normal S1, Normal S2, No murmurs Abdomen: Bowel Sounds Present, Soft, Non Tender, Non-Distended Extremities: No clubbing, No cyanosis, No edema, Capillary Refill Less than 3 Seconds Skin: No rashes, No breakdown Musculoskeletal: No Tenderness to Palpation of Joints or Extremities Neurological: Cranial nerves II-XII grossly intact, Neuro grossly intact Psych/Mental Status: Normal Affect, Appropriate Vital Signs Temp Pulse Resp BP Pulse Ox 97.7 F L 56 L 14 104/64 99 12/24/18 13:12 12/24/18 13:19 12/24/18 13:19 12/24/18 13:19 12/24/18 13:19 Oxygen Delivery Method Room Air Weight: 192 lb 10.944 oz Body Mass Index (BMI) 26.9 Laboratory Tests Past 24 Hrs 12/24/18 12/24/18 13:33 13:33 WBC 3.9 L RBC 3.58 L Hgb 11.2 L Hct 32.2 L MCV 89.9 MCH 31.3 MCHC 34.8 RDW Std Deviation 41.2 RDW Coeff of Mary 12.7 Plt Count 127 L MPV 10.1 Immature Gran % (Auto) 0.500 Neut % (Auto) 47.4 Lymph % (Auto) 32.8 [place] % (Auto) 13.4 H Eos % (Auto) 5.4 H Baso % (Auto) 0.5 Absolute Neuts (auto) 1.8 L Absolute Lymphs (auto) 1.27 Nucleated RBC % 0 Sodium 142 Potassium 4.0 Chloride 112 H Carbon Dioxide 21.0 Anion Gap 9 BUN 36 H Creatinine 1.41 H Estim Creat Clear Calc 44.50 Est GFR (MDRD) Af Amer 62 Est GFR (MDRD) Non-Af 51 L BUN/Creatinine Ratio 25.5 H Glucose 76 Calcium 7.8 L Total Bilirubin 0.40 AST 17 ALT 15 L Alkaline Phosphatase 61 Troponin I < 0.015 Total Protein 5.8 L Albumin 3.4 Globulin 2.4 Albumin/Globulin Ratio 1.4 Assessment/Plan All Active Problems (Last Updated 11/26/18 @ 22:29 by Lisa Pinon) Syncope (Acute) History of coronary artery stent placement (Resolved 2016) Non-STEMI (non-ST elevated myocardial infarction) (Resolved) Near syncope (Resolved) 1. Syncope, history of recurrent syncope-trend enzymes. Obtain orthostatic vitals. Repeat EKG in a.m. Pacer check. Consult cardiology. EKG on admission with mild bradycardia, first-degree AV block. Chest x-ray unremarkable. Fall precautions. Recent echocardiogram 11/10/2018 demonstrated an EF of 50%, mild segmental systolic dysfunction, mild mitral valve insufficiency, moderate tricuspid valve insufficiency, mild aortic stenosis, mild pulmonic valve insufficiency. He also had a stress test 11/11/2018 which demonstrated gated ejection fraction of 32%, global hypokinesis, minimal basal anterolateral trung-infarct ischemia. 2. Ischemic cardiomyopathy status post AICD, reported history of V. tach-patient reports his AICD battery has been at the end of its life for approximately the past 6 months. He has upcoming replacement surgery scheduled for January 08, 2019. Pacer check as noted above. 3. CAD status post CABG, stent placement and angioplasty-continue aspirin, carvedilol regimen. 4. Chronic kidney disease stage III, history of right nephrectomy- at baseline, trend BMP. 5. Hyperlipidemia- not on regimen. 6. BPH- not on regimen. 7. History of laminectomy DVT prophylaxis- heparin sc This patient was seen by HANNAH Crowell under the supervision of Dr. Ray.
[2018-12-24 17:05] LABS: Magnesium 2.4 mg/dL (1.6-2.6)
[2018-12-24] MEDS: Heparin Injection (Vial) 5,000 UNIT/ML VIAL 5000 UNIT SC (21:10)
[2018-12-24] MEDS: Carvedilol 3.125 MG TABLET PO (21:11)
[2018-12-24] MEDS: Acetaminophen 325 MG Tablet 650 MG PO (21:16)
[2018-12-25] VITALS (7 sets, daily range): BP systolic 85–110; BP diastolic 48–58; PULSE 47–70; RESP 10–14; TEMP 36.6–37.7; O2SAT 96–98
[2018-12-25 02:27] LABS: Hematocrit 30.6 % (40-54); Hemoglobin 10.7 g/dL (13.0-16.5); Mean Corpuscular Hgb 32.2 pg (27.0-32.0); Mean Corpuscular Volume 92.2 fL (80-94); Mean Platelet Vol. 9.9 fl (6.2-12.0); Platelet Count 111 K/mm3 (150-450); RBC Distribution Width CV 12.6 % (11.6-14.6); RBC Distribution Width SD 41.8 fl (35.1-43.9); Red Blood Count 3.32 M/mm3 (4.6-6.2); White Blood Count 3.6 K/mm3 (4.4-11.0)
[2018-12-25 03:03] LABS: Anion Gap 5 (5-15); BUN 42 mg/dL (7-18); BUN/Creat Ratio 29.4 RATIO (10-20); Calcium,Total 8.6 mg/dL (8.5-10.1); Chloride 108 mmol/L (98-107); Creatinine, Serum 1.43 mg/dL (0.70-1.30); EST Glomerular Filtration Rate 51 mL/min (>60); Est Glom Filt Rate - Afr Amer 61 mL/min (>60); Estimated Creatinine Clearance 43.88 ml/min; Glucose 101 mg/dL (74-106); Potassium 4.8 mmol/L (3.5-5.1); Sodium Level 139 mmol/L (136-145)
--- NOTE | 2018-12-25 05:55 | EKG12_ITS ---
Test Reason : AM EKG Blood Pressure : / mmHG Vent. Rate : 057 BPM Atrial Rate : 057 BPM P-R Int : 214 ms QRS Dur : 106 ms QT Int : 452 ms P-R-T Axes : 055 058 045 degrees QTc Int : 439 ms Sinus bradycardia with 1st degree A-V block Otherwise normal ECG When compared with ECG of 24-DEC-2018 13:14, MANUAL COMPARISON REQUIRED, DATA IS UNCONFIRMED Confirmed by JUAN JACOME, KAYLEN ([id number]), loan expeditor SAMSON GIBSON ([id number]) on 12/29/2018 1:53:13 PM Referred By: Joana Putnam Confirmed By:ARABELLA MARTINEZ MD
[2018-12-25] MEDS: Aspirin E.C. 81 MG Tablet PO (08:12)
[2018-12-25] MEDS: Ascorbic Acid 500 MG Tablet 1000 MG PO (08:12)
--- NOTE | 2018-12-25 09:48 | PCM.CONS.C ---
<Henrique Mackay - Last Filed: 12/25/18 11:36> Problem List (1) Ischemic cardiomyopathy Status: Chronic (2) Syncope Status: Acute (3) History of coronary artery stent placement Status: Resolved Comment: Stent-SVG 05/1994, POBA 03/1995, Stent-LCx 2016 (4) H/O coronary artery bypass surgery Status: Chronic Comment: CABG x 4 (5) Essential (primary) hypertension Status: Chronic (6) History of implantable cardiac defibrillator (ICD) Status: Chronic (7) Atherosclerosis of coronary artery of eagle heart without angina pectoris Status: Chronic Reason for Consult Date of Consultation: 12/25/18 Reason for Consultation: Syncope episode History of Present Illness: The patient is a 78 year old M with a significant history of kidney cancer status post nephrectomy; CAD status post CABG x4 in , coronary stent placed in graft in May 1994 and angioplasty in March 1995. He most recently underwent cardiac catheterization and stenting of his circumflex artery in 2016 following spine disc surgery. He had a syncope episode in July 2018 and was evaluated by [facility] electrophysiology team, Dr. Patel and [facility] neurology, Dr. Powell with unknown etiology. He had another syncopal episode in November 2018 in which he was evaluated at [facility] and discharged with [facility] follow-up. He also has a history of ischemic cardiomyopathy status post AICD and hypertension. Patient states he was at a restaurant yesterday. He noted not feeling well and felt as if he was going to pass out. He put his head down and next he recalls is he was surrounded by EMS on the floor. He does acknowledge feeling foggy and weak and slowly returned to baseline. Family members later told patient that he looked pale and felt cold. Bystanders, who were nurses, noted the event and lowered patient to the floor. A pulse was not palpable and they began CPR. EMS arrived within 2 minutes and had noted a pulse and CPR was discontinued. Patient was brought to the emergency department for further review. In the emergency department he underwent an EKG that showed sinus bradycardia rate of 52 bpm with a first-degree AV block without acute ST or T wave changes. His troponin was noted to be less than 0.015. His chest x-ray was negative for acute abnormality. He was given IV fluids and admitted for further evaluation. Cardiology was consulted for further recommendations. Past Medical History Allergies/Adverse Reactions: Allergies Penicillins Allergy (Verified 11/10/18 01:05) Unknown Home Medications: Ambulatory Orders Medication Instructions Recorded Ascorbic Acid [Vitamin C] 1,000 mg PO DAILY 03/23/17 Diclofenac [Voltaren] 75 mg PO BID PRN PRN 03/23/17 Cholecalciferol (Vitamin D3) 2,000 unit PO DAILY 07/13/18 [Vitamin D3] Ubidecarenone [Coq-10] 100 mg PO BID 11/10/18 Aspirin E.C. [Ecotrin] 81 mg PO DAILY@0800 12/24/18 Carvedilol 3.125 mg PO BID 12/24/18 Past Medical History (Chronic Problems): Chronic Problems (Last Updated 12/25/18 @ 14:40 by Lalo Myers DO) Ischemic cardiomyopathy (Chronic) Old inferior wall myocardial infarction (Chronic) Renal cancer (Chronic) H/O coronary artery bypass surgery (Chronic ~1979) CABG x 4 1979' Essential (primary) hypertension (Chronic) History of implantable cardiac defibrillator (ICD) (Chronic) Atherosclerosis of coronary artery of eagle heart without angina pectoris (Chronic) Chronic kidney disease, stage III (moderate) (Chronic) Status post right nephrectomy Surgical History: - - CABG, multiple cardiac stent placement, lower mandible bilateral reduction, laminectomy L2-L4, right nephrectomy, AICD placement. Psychiatric History: No pertinent psych hx - *Family History Maternal History Items: Cancer - Ovarian Paternal History Items: Diabetes Lives: Alone Smoking Status: Former smoker Alcohol: Occasional Drugs: None Review of Systems - Review of Systems General: Reports: Normal Appetite. Denies: Fever, Fatigue, Malaise, Chills, Weakness HEENT: Denies: Vision Change Cardiovascular: Reports: Near Syncope, Syncope. Denies: Chest Discomfort, Chest Discomfort at Rest, Chest Discomfort with Exertion, Chest Pressure, Chest Tightness, Chest Heaviness, Shortness of Breath, Shortness of Breath at Rest, Shortness of Breath with Exertion, Orthopnea, PND, Peripheral Edema, Palpitations, Lightheadedness, Dizziness Respiratory: Denies: Cough Gastrointestinal: Denies: Nausea Neurological: Denies: Dizziness Subjectve: Patient seen and evaluated. He states feeling well this morning. He states prior to syncopal episode yesterday he did not note any chest pain, lightheadedness, dizziness, palpitations, or shortness of breath. He denies any such symptoms this morning. Objective: Vital Signs Temp Pulse Resp BP Pulse Ox 99.8 F H 55 L 14 103/58 L 98 12/25/18 07:57 12/25/18 07:57 12/25/18 07:57 12/25/18 07:57 12/25/18 07:57 Oxygen Delivery Method Room Air Weight: 184 lb 1.376 oz Body Mass Index (BMI) 25.7 Orthostatic Vital Signs Start: 12/24/18 16:57 Freq: q24h Status: Active Protocol: Activity Type Activity Date Activity User E-Sign Co-Sign Detail Recorded Client Recorded Date Recorded By Document 12/25/18 06:05 [facility] [id number] 12/25/18 06:09 [facility] 12/25/18 06:05 Orthostatic Vitals Standing -Blood Pressure (90/60-120/80) 85/49 L -Extremity Use Right Arm -Pulse Rate (60-100) 69 Sitting -Blood Pressure (90/60-120/80) 85/48 L -Extremity Use Right Arm -Pulse Rate (60-100) 70 Lying -Blood Pressure (90/60-120/80) 94/49 L -Extremity Use Right Arm -Pulse Rate (60-100) 58 L Intake and Output for Last 24 Hours 12/23/18 12/24/18 12/25/18 23:59 23:59 23:59 Intake Total 480 / 480 250 / 250 Output Total 340 / 340 450 / 450 Balance 140 / 140 -200 / -200 General: Healthy Appearing, Awake, Alert, Oriented x 3, Cooperative HEENT: Atraumatic Oral: Moist Mucosa Neck: Supple, No JVD Lungs: Clear to auscultation Cardiovascular: Regular Rhythm, Normal S1, Normal S2, No Rubs, No Gallops Murmur Murmur: Grade 2/6, LLSB, RLSB Vascular: No Carotid Bruits, Normal Radial Pulses, Normal Dorsalis Pedal Pulse Abdomen: Bowel Sounds Present, Soft, Non Tender Extremities: No Cyanosis, No Clubbing, No edema, Normal Capillary Refill Musculoskeletal: No Erythema, No Warmth Skin: No Rashes Neurological: No Focal Motor or Sensory Deficit Psych/Mental Status: Appropriate, Normal Affect 12/24/18 13:33: WBC 3.9 L, RBC 3.58 L, Hgb 11.2 L, Hct 32.2 L, MCV 89.9, MCH 31.3, MCHC 34.8, Plt Count 127 L, MPV 10.1, Immature Gran % (Auto) 0.500, Neut % (Auto) 47.4, Lymph % (Auto) 32.8, [place] % (Auto) 13.4 H, Eos % (Auto) 5.4 H, Baso % (Auto) 0.5, Absolute Neuts (auto) 1.8 L, Nucleated RBC % 0 12/24/18 13:33: Sodium 142, Potassium 4.0, Chloride 112 H, Carbon Dioxide 21.0, Anion Gap 9, BUN 36 H, Creatinine 1.41 H, Est GFR (MDRD) Af Amer 62, Est GFR (MDRD) Non-Af 51 L, BUN/Creatinine Ratio 25.5 H, Glucose 76, Calcium 7.8 L, Total Bilirubin 0.40, Troponin I < 0.015 12/24/18 13:33: Magnesium 2.4 12/24/18 19:35: Troponin I < 0.015 12/24/18 22:13: Troponin I < 0.015 12/25/18 01:55: WBC 3.6 L, RBC 3.32 L, Hgb 10.7 L, Hct 30.6 L, MCV 92.2, MCH 32.2 H, MCHC 35.0, Plt Count 111 L, MPV 9.9 12/25/18 01:55: Sodium 139, Potassium 4.8, Chloride 108 H, Carbon Dioxide 26.0, Anion Gap 5, BUN 42 H, Creatinine 1.43 H, Est GFR (MDRD) Af Amer 61, Est GFR (MDRD) Non-Af 51 L, BUN/Creatinine Ratio 29.4 H, Glucose 101, Calcium 8.6 12/25/18 01:55: Troponin I < 0.015 Rhythm: EKG: ECHO: 11/10/2018 Interpretation Summary Mildly dilated left ventricle. Mild segmental systolic dysfunction (see wall motion). The estimated ejection fraction is 50 %. The left atrium is mildly enlarged. Mild diffuse mitral valve thickening. The mitral valve chordae are thickened and/or calcified. Mild (1+) mitral valve insufficiency. Moderate (2+) tricuspid valve insufficiency. Mild aortic stenosis. Trivial aortic valve insufficiency. Mild (1+) pulmonic valve insufficiency. Calcified aortic root. Right ventricular systolic pressure estimated to be 20 mmHg. Transmitral diastolic flow velocities suggest diastolic dysfunction (pseudonormal pattern). Stress Test: 11/11/2018 Conclusion: Myocardial perfusion stress test with extensive inferior infarct extending to the inferolateral wall. Minimal basal anterolateral trung-infarct ischemia. Cardiomyopathy noted. Cardiac Cath: PCI: CT Surgery: Holter monitor: EPS: PPM: CXR: Chest CT Scan: Assessment/Plan 1. Syncopal episode The exact etiology remains unclear at this time. His episode may be vasovagal mediated versus arrhythmogenic. He blood pressure and heart rate remain lower this morning. He underwent AICD interrogation that did not reveal VT/VF episodes, however, his device is at end of service. There was a VT/VF episode noted between July and November. Though his heart rate is on the lower end, he will resume Coreg 3.125 mg p.o. twice daily to help with ventricular arrhythmia component and/or vasovagal component. We will monitor heart rate and blood pressure closely. He will continue to follow with [facility] electrophysiology team in [facility] neurology team. 2. AICD Patient does have an AICD placed presumably for ischemic cardiomyopathy and possibly reduced ejection fraction previously. This was interrogated this morning and no VT/VF episodes were noted. It was noted to be at end of service. He is scheduled to have generator change, possible lead revision, and possible additional atrial lead placed on January 08 with [facility] Electrophysiology team. His bilingual inside sales representative, Dr. Sanders, was contacted to discuss patient's care further. Patient's generator has been at end of service for some time now and patient has refused to have this replaced. He was offered to have this replaced approximately 1 to 2 months ago and patient refused. Etiology of his syncopal episodes remain unclear. Electrophysiology believes there is more than just a cardiogenic component, if at all. His device has been monitored with very liberal settings no concerns have been found. He agreed with plan to continue with aspirin and current beta-geno therapy and keep currently scheduled appointment for generator change and possible lead revision and placement of atrial lead at the end of the month. 3. Ischemic cardiomyopathy Patient's echocardiogram on 11/10/2018 showed ejection fraction of 50% and RVSP of 20 mmHg. He denies any shortness of breath, lower extremity edema, or activity intolerance prior to his event. He denies any such symptoms this morning. He does not appear to be in fluid volume overload state on exam. At this time, he will continue with current beta-geno. We will continue to monitor. 4. Atherosclerotic coronary artery disease He does have a history of coronary artery bypass x4 in the , coronary stent placement to graft in May 1994 and angioplasty in March 1995. He underwent catheterization in 2016 resulting in his stenting to his circumflex. His echocardiogram in November 2018 showed ejection fraction of 50%. His stress test from November 2018 showed minimal ischemia. Due to his kidney history, medical management was recommended. He did not undergo heart catheterization. His cardiac enzymes have been negative x4. He denies any concerning symptoms such as chest pain, jaw pain, neck pain, shortness of breath, or fatigue today. He will continue aspirin therapy and continue to follow with [facility] on an outpatient basis. 5. Hypertension Patient's blood pressure is well controlled. He will continue Coreg 3.125 mg p.o. twice daily. 6. Pancytopenia He was asked to discuss this for further with primary care physician. His case was discussed and reviewed with Dr. Palma. Thank you for allowing us to participate in the patients plan of care, if you have any questions please do not hesitate to call. This note was generated using a voice recognition system and there may be incorrect words, spelling or punctuation that were not noted when reviewing the office note prior to saving. <Ceasar Palma - Last Filed: 12/25/18 15:46> Reason for Consult History of Present Illness: The patient is a 78 year old M [] Objective: Vital Signs Temp Pulse Resp BP Pulse Ox 99.8 F H 55 L 14 103/58 L 98 12/25/18 07:57 12/25/18 07:57 12/25/18 07:57 12/25/18 07:57 12/25/18 07:57 Oxygen Delivery Method Room Air Weight: 184 lb 1.376 oz Body Mass Index (BMI) 25.7 Orthostatic Vital Signs Start: 12/24/18 16:57 Freq: q24h Status: Active Protocol: Activity Type Activity Date Activity User E-Sign Co-Sign Detail Recorded Client Recorded Date Recorded By Document 12/25/18 06:05 [facility] [id number] 12/25/18 06:09 [facility] 12/25/18 06:05 Orthostatic Vitals Standing -Blood Pressure (90/60-120/80) 85/49 L -Extremity Use Right Arm -Pulse Rate (60-100) 69 Sitting -Blood Pressure (90/60-120/80) 85/48 L -Extremity Use Right Arm -Pulse Rate (60-100) 70 Lying -Blood Pressure (90/60-120/80) 94/49 L -Extremity Use Right Arm -Pulse Rate (60-100) 58 L Intake and Output for Last 24 Hours 12/23/18 12/24/18 12/25/18 23:59 23:59 23:59 Intake Total 480 / 480 570 / 570 Output Total 340 / 340 950 / 950 Balance 140 / 140 -380 / -380 12/24/18 13:33: Magnesium 2.4 12/24/18 19:35: Troponin I < 0.015 12/24/18 22:13: Troponin I < 0.015 12/25/18 01:55: WBC 3.6 L, RBC 3.32 L, Hgb 10.7 L, Hct 30.6 L, MCV 92.2, MCH 32.2 H, MCHC 35.0, Plt Count 111 L, MPV 9.9 12/25/18 01:55: Sodium 139, Potassium 4.8, Chloride 108 H, Carbon Dioxide 26.0, Anion Gap 5, BUN 42 H, Creatinine 1.43 H, Est GFR (MDRD) Af Amer 61, Est GFR (MDRD) Non-Af 51 L, BUN/Creatinine Ratio 29.4 H, Glucose 101, Calcium 8.6 12/25/18 01:55: Troponin I < 0.015 Rhythm: EKG: ECHO: Stress Test: Cardiac Cath: PCI: CT Surgery: Holter monitor: EPS: PPM: CXR: Chest CT Scan: Assessment/Plan Patient was seen, evaluated and discussed with Henrique Mackay APN. I agree with above. Please see Henrique Mackay's note for full details. No arrhythmias noted on AICD interrogation. Pt. can be dc'd home and can f/u with primary circuit breaker mechanic and bilingual inside sales representative Dr. Sanders.
[2018-12-25] MEDS: Heparin Injection (Vial) 5,000 UNIT/ML VIAL 5000 UNIT SC (11:34)
[2018-12-25] MEDS: Carvedilol 3.125 MG TABLET PO (11:34)
--- NOTE | 2018-12-25 11:45 | DCINST_ITS ---
- Discharge Diagnoses Current Active Problems: Current Active and Chronic Problems (Last Updated 11/26/18 @ 22:29 by Lisa Pinon) Syncope (Acute) You will use the following diet at home:: Cardiac Discharge Activity: Return to Normal Activity, May Not Drive - Until Ok by cardiology and neurology given recurrent syncope. Call your doctor if you observe: Shortness of breath, Dizziness, Fainting spells, Chest pain Allergies/Adverse Reactions: Allergies Penicillins Allergy (Verified 11/10/18 01:05) Unknown Medications to take at Discharge Ascorbic Acid [Vitamin C] 1,000 mg PO DAILY 03/23/17 Diclofenac [Voltaren] 75 mg PO BID PRN PRN 03/23/17 Cholecalciferol (Vitamin D3) [Vitamin D3] 2,000 unit PO DAILY 07/13/18 Ubidecarenone [Coq-10] 100 mg PO BID 11/10/18 Aspirin E.C. [Ecotrin] 81 mg PO DAILY@0800 12/24/18 Carvedilol 3.125 mg PO BID 12/24/18 Primary Care Physician: David Martínez MD [Primary Care Provider] - Please follow up with your Primary Care Physician in: 1 Week Test Results: Test results from this visit will be discussed in further detail at your follow- up appointment, if applicable. Please Follow Up With: Dr. Sanders- [facility] Cardiology When: Follow-up as scheduled for ICD replacement 01/08/2019 Please Follow Up With: Dr. Powell- [facility] Neuro When: As scheduled Proposed Discharge Date: 12/25/18
--- NOTE | 2018-12-25 11:52 | DS.PCM_ITS ---
<Joana Putnam - Last Filed: 12/25/18 12:06> Discharge Date and Diagnosis - Problem List Patient Problems: Active and Suspected Problems (Last Updated 12/25/18 @ 11:52 by HANNAH Crwoell) Syncope (Acute) Date of Admission: 12/24/18 Date of Discharge: 12/25/18 - Primary Discharge Diagnosis Active and Suspected Problems (Last Updated 11/26/18 @ 22:29 by Lisa Pinon) 1. Syncope, history of recurrent syncope-arrhythmia ruled out. Possibly vasovagal. 2. Ischemic cardiomyopathy status post AICD, reported history of V. tach 3. CAD status post CABG, stent placement and angioplasty 4. Chronic kidney disease stage III, history of right nephrectomy 5. Hyperlipidemia 6. BPH 7. History of laminectomy - Secondary Discharge Diagnosis Chronic Problems (Last Updated 11/26/18 @ 22:29 by Lisa Pinon) Ischemic cardiomyopathy (Chronic) Old inferior wall myocardial infarction (Chronic) Renal cancer (Chronic) H/O coronary artery bypass surgery (Chronic ~1979) CABG x 4 Essential (primary) hypertension (Chronic) History of implantable cardiac defibrillator (ICD) (Chronic) Atherosclerosis of coronary artery of [place] heart without angina pectoris (Chronic) Chronic kidney disease, stage III (moderate) (Chronic) Status post right nephrectomy Hospital Course and Treatment Imaging Results: Diagnostic Data Chest X-Ray 12/24/18 13:31 IMPRESSION: No acute abnormality is seen. Electronically Signed: Alok Condon, at 14:06 EDT , Service support , Dr. Palma- Cardiology Operations: None Procedures: None Summary of Care Provided: The patient is a 78 year old M admitted 12/24/2017 due to syncope. 1. Syncope, history of recurrent syncope-troponin negative. EKG without ST-T changes. Orthostatic vitals negative. ICD interrogation completed and did not show any evidence of arrhythmia. Chest x-ray unremarkable. Recent echocardiogram 11/10/2018 demonstrated an EF of 50%, mild segmental systolic dysfunction, mild mitral valve insufficiency, moderate tricuspid valve insufficiency, mild aortic stenosis, mild pulmonic valve insufficiency. He also had a stress test 11/11/2018 which demonstrated gated ejection fraction of 32%, global hypokinesis, minimal basal anterolateral trung-infarct ischemia. Cardiology consulted during admission. Spoke with patient's primary supply specialist, Dr. Sanders [facility] who it does not feel his recurrent syncope is related to arrhythmias or cardiac in nature. He has had one episode of V. fib arrest where his defibrillator fired. He has been told for approximately the past year that his battery was at end-of-life and he has put off replacing his ICD. He is scheduled for ICD replacement 01/08/2019. Follow-up with cardiology as scheduled. Patient reports he has had extensive neuro work-up with Dr. Powell, [facility] neurology. Recommend continued follow-up with neurology as well. Discussed with patient given recurrent syncope that he should not drive until further approved to drive by cardiology and neurology. 2. Ischemic cardiomyopathy status post AICD, reported history of V. tach- patient reports his AICD battery has been at the end of its life for approximately the past 6 months- 1 year. He has upcoming replacement surgery scheduled for January 08, 2019. Pacer check as noted above. 3. CAD status post CABG, stent placement and angioplasty-continue aspirin, carvedilol regimen. 4. Chronic kidney disease stage III, history of right nephrectomy- at baseline. 5. Hyperlipidemia- not on regimen. 6. BPH- not on regimen. 7. History of laminectomy General: Alert, Oriented x3, Cooperative HEENT: Atraumatic, PERRLA, EOMI, Normocephalic Neck: Supple, No JVD, Negative Carotid Bruits Lungs: Clear to auscultation, Normal air movement Cardiovascular: Regular rate, Regular Rhythm, Normal S1, Normal S2, No murmurs Abdomen: Bowel Sounds Present, Soft, Non Tender, Non-Distended Extremities: No clubbing, No cyanosis, No edema, Capillary Refill Less than 3 Seconds Skin: No rashes, No breakdown Musculoskeletal: No Tenderness to Palpation of Joints or Extremities Neurological: Cranial nerves II-XII grossly intact, Neuro grossly intact Psych/Mental Status: Normal Affect, Appropriate Patient seen and examined prior to discharge. Physical assessment as noted above. Patient is stable for discharge with follow up recommendations as noted above. This patient was seen by HANNAH Crowell under the supervision of Dr. Myers. Patient Problems: Active and Suspected Problems (Last Updated 12/25/18 @ 11:52 by HANNAH Crowell) Syncope (Acute) - Physical Exam Vital Signs Temp Pulse Resp BP Pulse Ox 99.8 F H 55 L 14 103/58 L 98 12/25/18 07:57 12/25/18 07:57 12/25/18 07:57 12/25/18 07:57 12/25/18 07:57 Oxygen Delivery Method Room Air Weight: 184 lb 1.376 oz Body Mass Index (BMI) 25.7 Orthostatic Vital Signs Start: 12/24/18 16:57 Freq: q24h Status: Active Protocol: Activity Type Activity Date Activity User E-Sign Co-Sign Detail Recorded Client Recorded Date Recorded By Document 12/25/18 06:05 MEP [id number] 12/25/18 06:09 MEP 12/25/18 06:05 Orthostatic Vitals Standing -Blood Pressure (90/60-120/80) 85/49 L -Extremity Use Right Arm -Pulse Rate (60-100) 69 Sitting -Blood Pressure (90/60-120/80) 85/48 L -Extremity Use Right Arm -Pulse Rate (60-100) 70 Lying -Blood Pressure (90/60-120/80) 94/49 L -Extremity Use Right Arm -Pulse Rate (60-100) 58 L Intake and Output for Last 24 Hours 12/23/18 12/24/18 12/25/18 23:59 23:59 23:59 Intake Total 480 / 480 570 / 570 Output Total 340 / 340 950 / 950 Balance 140 / 140 -380 / -380 Laboratory Tests Past 24 Hrs 12/24/18 12/24/18 12/24/18 13:33 13:33 13:33 WBC 3.9 L RBC 3.58 L Hgb 11.2 L Hct 32.2 L MCV 89.9 MCH 31.3 MCHC 34.8 RDW Std Deviation 41.2 RDW Coeff of Mary 12.7 Plt Count 127 L MPV 10.1 Immature Gran % (Auto) 0.500 Neut % (Auto) 47.4 Lymph % (Auto) 32.8 Randall % (Auto) 13.4 H Eos % (Auto) 5.4 H Baso % (Auto) 0.5 Absolute Neuts (auto) 1.8 L Absolute Lymphs (auto) 1.27 Nucleated RBC % 0 Sodium 142 Potassium 4.0 Chloride 112 H Carbon Dioxide 21.0 Anion Gap 9 BUN 36 H Creatinine 1.41 H Estim Creat Clear Calc 44.50 Est GFR (MDRD) Af Amer 62 Est GFR (MDRD) Non-Af 51 L BUN/Creatinine Ratio 25.5 H Glucose 76 Calcium 7.8 L Magnesium Total Bilirubin 0.40 AST 17 ALT 15 L Alkaline Phosphatase 61 Troponin I < 0.015 Total Protein 5.8 L Albumin 3.4 Globulin 2.4 Albumin/Globulin Ratio 1.4 TSH 2.50 12/24/18 12/24/18 12/24/18 13:33 19:35 22:13 WBC RBC Hgb Hct MCV MCH MCHC RDW Std Deviation RDW Coeff of Amry Plt Count MPV Immature Gran % (Auto) Neut % (Auto) Lymph % (Auto) Randall % (Auto) Eos % (Auto) Baso % (Auto) Absolute Neuts (auto) Absolute Lymphs (auto) Nucleated RBC % Sodium Potassium Chloride Carbon Dioxide Anion Gap BUN Creatinine Estim Creat Clear Calc Est GFR (MDRD) Af Amer Est GFR (MDRD) Non-Af BUN/Creatinine Ratio Glucose Calcium Magnesium 2.4 Total Bilirubin AST ALT Alkaline Phosphatase Troponin I < 0.015 < 0.015 Total Protein Albumin Globulin Albumin/Globulin Ratio TSH 12/25/18 12/25/18 12/25/18 01:55 01:55 01:55 WBC 3.6 L RBC 3.32 L Hgb 10.7 L Hct 30.6 L MCV 92.2 MCH 32.2 H MCHC 35.0 RDW Std Deviation 41.8 RDW Coeff of Mary 12.6 Plt Count 111 L MPV 9.9 Immature Gran % (Auto) Neut % (Auto) Lymph % (Auto) Randall % (Auto) Eos % (Auto) Baso % (Auto) Absolute Neuts (auto) Absolute Lymphs (auto) Nucleated RBC % Sodium 139 Potassium 4.8 Chloride 108 H Carbon Dioxide 26.0 Anion Gap 5 BUN 42 H Creatinine 1.43 H Estim Creat Clear Calc 43.88 Est GFR (MDRD) Af Amer 61 Est GFR (MDRD) Non-Af 51 L BUN/Creatinine Ratio 29.4 H Glucose 101 Calcium 8.6 Magnesium Total Bilirubin AST ALT Alkaline Phosphatase Troponin I < 0.015 Total Protein Albumin Globulin Albumin/Globulin Ratio TSH Discharge Diet: Low fat/ Low Cholesterol Discharge Activity: Return to Normal Activity, May Not Drive - Until Ok by cardiology and neurology given recurrent syncope. Call your doctor if you observe: Shortness of breath, Dizziness, Fainting spells, Chest pain Home Medications: Medications to take at Discharge Ascorbic Acid [Vitamin C] 1,000 mg PO DAILY 03/23/17 Diclofenac [Voltaren] 75 mg PO BID PRN PRN 03/23/17 Cholecalciferol (Vitamin D3) [Vitamin D3] 2,000 unit PO DAILY 07/13/18 Ubidecarenone [Coq-10] 100 mg PO BID 11/10/18 Aspirin E.C. [Ecotrin] 81 mg PO DAILY@0800 12/24/18 Carvedilol 3.125 mg PO BID 12/24/18 Primary Care Physician: David Martínez MD [Primary Care Provider] - Please follow up with your Primary Care Physician in: 1 Week Please Follow Up With: Dr. Sanders- [facility] Cardiology When: Follow-up as scheduled for ICD replacement 01/08/2019 Please Follow Up With: Dr. Powell- [facility] Neuro When: As scheduled Disposition: Home Minutes spent on discharge:: 35 Patient Condition:: Stable Medical Necessity - Tobacco Use Smoking Status: Former smoker Meaningful Use Info Meaningful Use Diagnoses (Choose all that apply): None applicable <Lalo Myers - Last Filed: 12/25/18 14:43> Discharge Date and Diagnosis - Secondary Discharge Diagnosis Chronic Problems (Last Updated 12/25/18 @ 11:52 by Joana Putnam NP-Jossy) Ischemic cardiomyopathy (Chronic) Old inferior wall myocardial infarction (Chronic) Renal cancer (Chronic) H/O coronary artery bypass surgery (Chronic ~1979) CABG x 4 Essential (primary) hypertension (Chronic) History of implantable cardiac defibrillator (ICD) (Chronic) Atherosclerosis of coronary artery of [place] heart without angina pectoris (Chronic) Chronic kidney disease, stage III (moderate) (Chronic) Status post right nephrectomy Hospital Course and Treatment Operations: None Procedures: None Summary of Care Provided: Patient seen and examined independently. Data reviewed. I agree with the above note by the nurse practitioner. The patient is a 78 year old M presents with syncope. Patient was having lunch with family and stated that he ate premature off his meal had about half of beer, stating only drink caffeine because just did not taste right. Was about to get up and then just felt woozy was going to rest his head as he felt that this is similar to his other syncopal events and then passed out. There were people in healthcare field who were actually at the restaurant they could not palpate a pulse and initiated CPR. EMS was contacted and arrived and patient was not felt to require any additional CPR patient was brought to the hospital. Patient underwent a work-up in the hospital that was unremarkable. Patient has had a history of syncope related with ventricular tachycardia received those symptoms began very suddenly and his symptoms this time around was more consistent with vasovagal events. Seen by cardiology here to fill those vasovag al supply specialist at [facility] also felt that it was not related with his arrhythmias. Patient would be discharged in stable condition. Patient has a known defibrillator that the generator is needs to be replaced but the patient has continued decline replacement at this time. Patient advised to follow-up with cardiology to have that remedied. [] - Physical Exam General: Alert, No apparent distress HEENT: Atraumatic, Normocephalic Oral: Moist Mucosa, No Gingival or Mucosal Lesions/ Ulcerations Neck: No Nodes, Thyroid Normal Size and Texture Lungs: Clear to auscultation, Normal air movement, No rhonchi, No wheeze Cardiovascular: Regular rate, Regular Rhythm, Normal S1, Normal S2 Abdomen: Bowel Sounds Present, Soft, Non Tender, Non-Distended, No Hepato- splenomegaly Extremities: No edema, No Calf Tenderness Vital Signs Temp Pulse Resp BP Pulse Ox 37.7 C H 55 L 14 103/58 L 98 12/25/18 07:57 12/25/18 07:57 12/25/18 07:57 12/25/18 07:57 12/25/18 07:57 Oxygen Delivery Method Room Air Weight: 83.5 kg Body Mass Index (BMI) 25.7 Orthostatic Vital Signs Start: 12/24/18 16:57 Freq: q24h Status: Active Protocol: Activity Type Activity Date Activity User E-Sign Co-Sign Detail Recorded Client Recorded Date Recorded By Document 12/25/18 06:05 [facility] [id number] 12/25/18 06:09 MEP 12/25/18 06:05 Orthostatic Vitals Standing -Blood Pressure (90/60-120/80) 85/49 L -Extremity Use Right Arm -Pulse Rate (60-100) 69 Sitting -Blood Pressure (90/60-120/80) 85/48 L -Extremity Use Right Arm -Pulse Rate (60-100) 70 Lying -Blood Pressure (90/60-120/80) 94/49 L -Extremity Use Right Arm -Pulse Rate (60-100) 58 L Intake and Output for Last 24 Hours 12/23/18 12/24/18 12/25/18 23:59 23:59 23:59 Intake Total 480 / 480 570 / 570 Output Total 340 / 340 950 / 950 Balance 140 / 140 -380 / -380 Laboratory Tests Past 24 Hrs 12/24/18 12/24/18 12/24/18 13:33 13:33 19:35 WBC RBC Hgb Hct MCV MCH MCHC RDW Std Deviation RDW Coeff of Mary Plt Count MPV Sodium Potassium Chloride Carbon Dioxide Anion Gap BUN Creatinine Estim Creat Clear Calc Est GFR (MDRD) Af Amer Est GFR (MDRD) Non-Af BUN/Creatinine Ratio Glucose Calcium Magnesium 2.4 Troponin I < 0.015 TSH 2.50 12/24/18 12/25/18 12/25/18 22:13 01:55 01:55 WBC 3.6 L RBC 3.32 L Hgb 10.7 L Hct 30.6 L MCV 92.2 MCH 32.2 H MCHC 35.0 RDW Std Deviation 41.8 RDW Coeff of Mary 12.6 Plt Count 111 L MPV 9.9 Sodium 139 Potassium 4.8 Chloride 108 H Carbon Dioxide 26.0 Anion Gap 5 BUN 42 H Creatinine 1.43 H Estim Creat Clear Calc 43.88 Est GFR (MDRD) Af Amer 61 Est GFR (MDRD) Non-Af 51 L BUN/Creatinine Ratio 29.4 H Glucose 101 Calcium 8.6 Magnesium Troponin I < 0.015 TSH 12/25/18 01:55 WBC RBC Hgb Hct MCV MCH MCHC RDW Std Deviation RDW Coeff of Mary Plt Count MPV Sodium Potassium Chloride Carbon Dioxide Anion Gap BUN Creatinine Estim Creat Clear Calc Est GFR (MDRD) Af Amer Est GFR (MDRD) Non-Af BUN/Creatinine Ratio Glucose Calcium Magnesium Troponin I < 0.015 TSH Discharge Diet: Low fat/ Low Cholesterol Discharge Activity: Return to Normal Activity, May Not Drive Call your doctor if you observe: Shortness of breath, Dizziness, Fainting spells, Chest pain Disposition: Home Minutes spent on discharge:: 35 Patient Condition:: Stable Medical Necessity - Tobacco Use Smoking Status: Former smoker Meaningful Use Info Meaningful Use Diagnoses (Choose all that apply): None applicable Code Visit OBSV E&M: 80590 Observation care discharge
--- NOTE | 2018-12-25 15:46 | CASEMGMT ---
Addendum entered by Dariana Bojorquez 12/25/18 16:15: Pt is A/Ox4 at this time and answers all questions appropriately. Rebecca RODRIGUEZ CM Original Note: Therapy stated concerns with pt being unsteady at this time. This RN CM to room to discuss discharge plan with pt at this time. HHC and OP therapy explained at this time and pt declines both at this time. Pt states that he 'just needs to get home.' Pt states that his sister normally transports him and she lives in [place]. Pt states has surgery scheduled in about a week or so at [facility] and may have HHC set up at that time. Pt is aware that he can contact PCP once home if he feels he needs any further therapy. Pt voices no further questions/concerns/needs at this time. Rebecca RODRIGUEZ CM
== END 2018-12-25 11:51 | disposition home or self-care (01) ==
LOC: ED 15:22 → PCU 15:39
PROVIDERS: Admitting Provider Nurse Practitioner Family; Emergency Provider Emergency Medicine; Family Provider Family Medicine; PCP Family Medicine; Referring Provider Nurse Practitioner Family
DX: R55 Syncope and collapse (principal); I25.10 Atherosclerotic heart disease of native coronary artery without angina pectoris; I12.9 Hypertensive chronic kidney disease with stage 1 through stage 4 chronic kidney disease, or unspecified chronic kidney disease; N18.3 Chronic kidney disease, stage 3 (moderate); E78.5 Hyperlipidemia, unspecified; I25.5 Ischemic cardiomyopathy; D61.818 Other pancytopenia; I44.0 Atrioventricular block, first degree; N40.0 Benign prostatic hyperplasia without lower urinary tract symptoms; Z79.899 Other long term (current) drug therapy; Z79.82 Long term (current) use of aspirin; Z98.890 Other specified postprocedural states; Z90.5 Acquired absence of kidney; Z95.5 Presence of coronary angioplasty implant and graft; Z85.528 Personal history of other malignant neoplasm of kidney; Z95.1 Presence of aortocoronary bypass graft; I25.2 Old myocardial infarction; Z95.810 Presence of automatic (implantable) cardiac defibrillator
CPT/HCPCS: 36415; 71045; 80048; 80053; 83735; 84443; 84484; 85025; 85027; 93005; 96360; 96361; 97163; 97166; 99218; 99285; J7030; G0378

== ENCOUNTER 2019-05-18 12:40 | Emergency (ER) | payer MEDICARE, BC, SELFPAY ==
[2018-12-24 16:48] VITALS: BMI 25.7
[2019-05-18 12:41] VITALS: BP 151/84; PULSE 64; RESP 14; TEMP 36.7; O2SAT 100; BMI 25.4
[2019-05-18 12:52] VITALS: BP 151/84; PULSE 63; RESP 13; O2SAT 100
--- NOTE | 2019-05-18 13:56 | EKG12_ITS ---
Test Reason : Blood Pressure : / mmHG Vent. Rate : 060 BPM Atrial Rate : 060 BPM P-R Int : 288 ms QRS Dur : 100 ms QT Int : 478 ms P-R-T Axes : -10 058 062 degrees QTc Int : 478 ms Atrial-paced rhythm with prolonged AV conduction Abnormal ECG Confirmed by COLLEEN GARZA ([id number]), story editor COURTNEY LO ([id number]) on 05/20/2019 10:48:34 AM Referred By: RAFITA Confirmed By:COLLEEN GARZA
--- NOTE | 2019-05-18 13:58 | RAD_ITS ---
STUDY: X-RAY CHEST REASON FOR EXAM: Male, 78 years old. NEAR SYNCOPE, SOB; H/O [place] -- CABG, ICD TECHNIQUE: Single AP portable view of the chest. COMPARISON: Comparison is made with prior study dated December 24, 2018. FINDINGS: EKG electrodes are seen. The lungs are clear and expanded. There is no demonstrated pleural abnormality. Sternal cerclage wires and vascular clips are present from a prior sternotomy and coronary artery bypass graft procedure (CABG). A left-sided ICD is seen. Normal mediastinum and kenzie. Normal visualized pulmonary arteries. There is atherosclerotic calcification of the aortic arch with tortuosity. There are diffuse degenerative changes of the visualized thoracic spine. Normal visualized ribs, clavicles, and shoulders. There is no demonstrated abnormality of the visualized soft tissue structures of the upper abdomen. RAD/Chest 1 View (Portable) IMPRESSION: No acute abnormality is seen. Electronically Signed: Alok Condon, at 14:24 EST , Service support ,
[2019-05-18 14:10] LABS: Absolute Lymphocyte Count 1.19 X10^3/uL (0.83-4.51); Basophil# 0.03 X10^3/uL; Basophil% 0.7 % (0-1); Eosinophil# 0.25 X10^3/uL; Eosinophils% 6.2 % (0-5); Hematocrit 37.7 % (40-54); Hemoglobin 12.7 g/dL (13.0-16.5); Lymphocyte # 1.19 X10^3/ul (4.0); Lymphocyte % 29.5 % (19-41); Mean Corp Hgb Conc 33.7 g/dL (32-36); Mean Corpuscular Volume 89.1 fL (80-94); Mean Platelet Vol. 10.1 fl (6.2-12.0); Monocyte# 0.55 X10^3/uL; Monocyte% 13.6 % (0-10); NRBC Flagged by Analyzer 0 % (0-5); Neutrophil % 49.8 % (47-70); Platelet Count 103 K/mm3 (150-450); RBC Distribution Width CV 13.1 % (11.6-14.6); RBC Distribution Width SD 42.8 fl (35.1-43.9); Red Blood Count 4.23 M/mm3 (4.6-6.2)
[2019-05-18 14:28] LABS: Anion Gap 2 (5-15); BUN 30 mg/dL (7-18); BUN/Creat Ratio 22.2 RATIO (10-20); Calcium,Total 8.5 mg/dL (8.5-10.1); Chloride 108 mmol/L (98-107); Creatinine, Serum 1.35 mg/dL (0.70-1.30); EST Glomerular Filtration Rate 54 mL/min (>60); Est Glom Filt Rate - Afr Amer 65 mL/min (>60); Estimated Creatinine Clearance 46.48 ml/min; Glucose 95 mg/dL (74-106); Potassium 4.4 mmol/L (3.5-5.1); Sodium Level 139 mmol/L (136-145)
--- NOTE | 2019-05-18 14:52 | CM.ED ---
Social Work Consult: Resources Informant: Dr. Malik Met with patient in room. Introduced self as well as group social worker role. Patient agreeable to meet with this group social worker. Patient stating to believe that patient is needed to start thinking about transitioning to assisted living. Patient stating to have had several falls at home over the past year. Patient provided with assisted living list. Patient stating to have a sister for support but that patient sister is currently out of town. Patient stating to not drive and to need a list of taxi's to call to bring patient back to home. Provided patient with list of taxi's in the area. Active listening and support provided. PLAN: Discharge to home GIACOMO Diehl
[2019-05-18 15:18] VITALS: BP 150/85; PULSE 62; RESP 15; O2SAT 98
[2019-05-18 15:22] VITALS: BP 121/78; BP 122/76; BP 144/84; PULSE 66; PULSE 67
--- NOTE | 2019-05-18 16:34 | ED.DEP ---
ED Disposition - Plan for ED Patient: Instructions: NEAR SYNCOPE, Unknown Referrals: David Martínez MD [Primary Care Provider] -
--- NOTE | 2019-05-18 16:41 | ED.DCSUM_ITS ---
- ER Visit Summary Date of Service: 05/18/19 Chief Complaint: Near syncope History of Present Illness: The patient is a 78 M presenting after near syncopal episode. Patient states that he started to feel lightheaded like he was going to pass out. He leaned forward and lowered himself to the floor. He did not hit his head. He did not lose consciousness. He states he has had multiple similar episodes in the past year and has had multiple work-ups. He has been seen by neurology at [facility] and diagnosed with vasovagal syncope. He was put on Florinef. He denies chest pain or shortness of breath. Denies fever. Denies other complaints. Physical Examination: Vitals are stable. Patient is afebrile. Alert no acute distress. HEENT exam is unremarkable. Neck is supple. Lungs are clear and equal bilaterally. Heart is regular rate and rhythm. Abdomen is soft nontender nondistended. Extremities are unremarkable. Skin is warm and dry. No focal neurologic deficit. Remainder of exam is unremarkable. Emergency Department Course and Treatment: EKG is paced at rate of 60. Chest x- ray shows no acute process. CBC shows hemoglobin 12.7, platelet 103, near his baseline. BUN 30, creatinine 1.35, near his baseline. Troponin is negative. Orthostatics negative. On reevaluation, patient is feeling improved. He declines observation admission. He will follow-up with his neurologist. He is advised to return to the ED for worsening complaints. Disposition: Discharge home Impression: Near syncope This note was generated with [employer] dictation software. It may contain incorrect words, spelling, and punctuation that were not noted in review of the chart prior to signing ED Disposition - Plan for ED Patient: Instructions: NEAR SYNCOPE, Unknown Referrals: David Martínez MD [Primary Care Provider] -
[2019-05-18 16:48] VITALS: BP 121/91; PULSE 67; RESP 15; O2SAT 98
== END 2019-05-18 16:49 | disposition home or self-care (01) ==
LOC: ED 13:59
PROVIDERS: Emergency Provider Emergency Medicine; Family Provider Family Medicine; PCP Family Medicine
DX: R55 Syncope and collapse (principal); I25.10 Atherosclerotic heart disease of native coronary artery without angina pectoris; I25.2 Old myocardial infarction; Z95.1 Presence of aortocoronary bypass graft; Z79.82 Long term (current) use of aspirin; Z79.899 Other long term (current) drug therapy
CPT/HCPCS: 71045; 80048; 84484; 85025; 93005; 99285; A4216